=== PATIENT | female | born 1995 | race American Indian/Alaskan Native ===

== ENCOUNTER 2022-03-08 20:20 | Inpatient (IN) | payer OTHER, SELFPAY ==
--- NOTE | ~2022-03-08 | CT_ITS ---
EXAMINATION: CT HEAD WITHOUT CONTRAST CLINICAL INFORMATION: Altered mental status. COMPARISON: No relevant prior imaging. TECHNIQUE: Contiguous axial imaging was performed from the skull base to vertex without intravenous administration of contrast. This CT examination was performed using dose optimization techniques as appropriate, variously including the following: *Automated exposure control *Adjustment of mA and/or kV according to patient size (this includes techniques or standardized protocols for targeted exams where dose is matched to indication/reason for exam; i.e. extremities or head) *Use of iterative reconstruction technique DLP: 561 mGy-cm FINDINGS: There is no acute intracranial hemorrhage or abnormal extra-axial collection. No intracranial mass effect or midline shift. Lateral and third ventricles are normal. No hydrocephalus. [place]-white matter differentiation is preserved and there is no evidence of acute territorial infarct. The calvarium and skull base are intact. No mastoid or middle ear effusion. No active paranasal sinus disease. A large nasal septal perforation is partially included within the [id number] of this examination. CT/CT head/brain wo con IMPRESSION: There is a large nasal septal perforation is partially included within the [id number] of this examination. Otherwise unremarkable CT scan of the head. Specifically no evidence of acute territorial infarct or hemorrhage.
[2022-03-08 20:36] VITALS: BP 158/90; PULSE 110; RESP 18; TEMP 36.4; O2SAT 97; BMI 24.0
--- NOTE | 2022-03-08 20:45 | PC.NURSE ---
Attempted blood work-unsuccessful.
--- NOTE | 2022-03-08 21:05 | ED.PSYCH ---
HPI - Psych General Chief Complaint: Psychiatric Symptoms Stated Complaint: crisis Time Seen by Provider: 03/08/22 21:04 Source: patient Mode of arrival: ambulatory Limitations: other (poor historian - patient keeps looking around stating I don't know. ) History of Present Illness MD complaint: feels depressed, anxiety, substance abuse and other (not eating, sleeping, left home naked) Onset (ago): day(s) (?last few days) Duration: getting worse History of same: No Relieving factors: none Exacerbating factors: drug use Context: recent drug abuse and significant life stressor (mother recently passed) Associated psychiatric symptoms: racing thoughts Associated symptoms: other (not eating or sleeping) Related Data Allergies Allergy/AdvReac Type Severity Reaction Status Date / Time No Known Allergies Allergy Verified 06/27/20 16:17 Review of Systems Review of Systems: Constitutional : No Fever, No Chills ENT/Mouth : No Ear Pain, No Nasal Congestion, No sore throat Eyes: No Eye Pain, No Swelling, No Redness Cardiovascular : No Chest Pain, No SOB Respiratory : No Cough, No Sputum, No Dyspnea Gastrointestinal : No Nausea, No Vomiting, No Diarrhea, No Hematochezia, No Melena Genitourinary : No Dysuria, No Urinary Frequency, No Hematuria Musculoskeletal : No Myalgias Skin : No Skin Lesions, No rash Neuro : No Weakness, No Numbness, No Paresthesias, No Dizziness, No Headache Psych : positive Anxiety, no Depression, no SI/HI Heme/Lymph: No Lymphadenopathy Endocrine : No Polyuria, No Polydipsia All other systems reviewed and are negative [facility] Past Medical History Source: old records reviewed Medical History Chronic cough Smoker Family History Family History (Updated 06/27/20 @ 16:18 by GIOVANNI Magana) Father No problems noted. Mother Family history of thyroid problem Social History Social History (Updated 03/08/22 @ 21:29 by Padmini Borrero DO) Patient Tobacco Use Status: Current everyday Tobacco user Substance Use Type: Crack/Cocaine and Heroin Physical Exam Vital Signs: Vital Signs: Last Vital Signs Temp 97.6 F 03/08/22 20:36 Pulse 110 H 03/08/22 20:36 Resp 18 03/08/22 20:36 BP 158/90 H 03/08/22 20:36 Pulse Ox 97 03/08/22 20:36 O2 Del Method 03/08/22 20:36 BMI result Body Mass Index 24.0 Appearance: Alert. Oriented X 1. No acute distress. Anxious, looking around room appears paranoid and responding to internal stimuli Eyes: Pupils equal, round and reactive to light. 4mm ENT: Pharynx normal. Neck: Normal inspection. Neck supple. CVS: Normal heart rate and rhythm. Pulses normal. Respiratory: No respiratory distress. Breath sounds normal. Abdomen: Soft and non-tender. Skin: Skin warm and dry. Normal skin color. Normal skin turgor. Extremities: No lower extremity edema. Neuro: Oriented X 1. No motor deficit. No sensory deficit. CN 2-12 intact Course Course Course Narrative: Physician observation started at 1047pm. Patient placed in physician observation because the patient needed more time for [facility] to assess the need for psych admission. At the time observation was started the patient's vitals were stable, patient is alert and oriented but slightly anxious, Neuro: nonfocal, CV RRR, Lungs clear patient threatening to leave still under the influence and paranoid - S12 signed PO meds given patient now agitated, hitting the doors swinging at staff, IM zyprexa and restraints ordered for her and staff safety MDM - Psych MDM Narrative Medical decision making narrative: 27 yo female with hx of substance abuse here with c/o not eating, sleeping, substance abuse ? heroin and she appears paranoid and responding to internal stimuli at this time will obtain labs, drugs of abuse, PO ativan at her request. Will refer to [facility] Lab Data Result diagrams: 03/08/22 21:49 03/08/22 21:49 Labs: Lab Results 03/08/22 03/08/22 03/08/22 Range/Units 20:44 21:49 21:49 WBC 9.8 (4.8-10.8) X10*3/uL RBC 4.80 (4.20-5.50) X10*6/uL Hgb 13.8 (12.0-16.0) g/dl Hct 41.2 (37.0-47.0) % MCV 85.8 (80.0-98.0) fL MCH 28.8 (27.0-33.0) pg MCHC 33.5 (31.0-35.0) g/dl RDW 13.2 (11.0-16.0) % Plt Count 266 (160-400) X10*3/uL MPV 10.3 (9.4-12.3) fL Immature Gran % (Auto) 0.3 (0.0-0.4) % Neut % (Auto) 60.7 (45-73) % Lymph % (Auto) 31.0 (20-40) % [place] % (Auto) 7.3 (2-11) % Eos % (Auto) 0.3 (0-4) % Baso % (Auto) 0.4 (0-2) % Lymph # (Auto) 3.1 (1.2-4.9) X10*3/uL [place] # (Auto) 0.7 (0.1-1.2) X10*3/uL Eos # (Auto) 0.0 (0.0-0.4) X10*3/uL Baso # (Auto) 0.0 (0.0-0.2) X10*3/uL Abs Immat Gran (auto) 0.03 (0.00-0.03) X10*3/uL Absolute Neuts (auto) 6.0 (2.0-8.3) x10*3/uL Absolute Nucleated RBC 0.000 (0.0-0.012) X10*3/uL Nucleated RBC % (auto) 0.0 (0.0-0.2) /100WBC Sodium 139 (135-145) mmol/L Potassium 3.8 (3.3-5.1) mmol/L Chloride 104 (96-108) mmol/L Carbon Dioxide 22 (22-29) mmol/L Anion Gap 17 (12-20) BUN 15 (9-16) mg/dL Creatinine 0.98 (0.5-1.4) mg/dL Estim Creat Clear Calc 74.5 Estimated GFR > 60 Random Glucose 122 H (60-115) mg/dL Calcium 9.1 (8.4-10.2) mg/dL Total Bilirubin 0.6 (0.0-1.0) mg/dL AST 13 (5-31) U/L ALT 10 (0-31) U/L Alkaline Phosphatase 66 (39-117) U/L Total Protein 8.2 H (6.5-8.0) g/dL Albumin 5.1 H (3.5-5.0) g/dL Ethyl Alcohol < 10 mg/dL COVID-19 (DANILO) Negative (Negative) COVID-19 Clin Com See Note Discharge Plan Discharge Clinical Impression: Acute anxiety Patient Disposition: Still a Patient
[2022-03-08 21:23] LABS: COVID-19 Test Negative (Negative)
[2022-03-08] MEDS: LORazepam 1 MG TABLET 2 MG PO ×2 (21:31→22:52)
[2022-03-08 22:04] LABS: MANUAL DIFF FLAG NO
[2022-03-08 22:08] LABS: Basophils Percent Auto 0.4 % (0-2); Eosinophils Percent Auto 0.3 % (0-4); Hematocrit 41.2 % (37.0-47.0); Hemoglobin 13.8 g/dl (12.0-16.0); Imm Gran Abs Auto 0.03 X10*3/uL (0.00-0.03); Imm Gran Pct Auto 0.3 % (0.0-0.4); Lymphocytes Absolute Auto 3.1 X10*3/uL (1.2-4.9); Mean Corpuscular HGB Conc 33.5 g/dl (31.0-35.0); Mean Corpuscular Hemoglobin 28.8 pg (27.0-33.0); Mean Corpuscular Volume 85.8 fL (80.0-98.0); Mean Platelet Volume 10.3 fL (9.4-12.3); Monocytes Absolute Auto 0.7 X10*3/uL (0.1-1.2); Monocytes Percent Auto 7.3 % (2-11); Neutrophils Percent Auto 60.7 % (45-73); Platelet Count 266 X10*3/uL (160-400); Red Cell Distribution Width 13.2 % (11.0-16.0); White Blood Count 9.8 X10*3/uL (4.8-10.8)
[2022-03-08 22:22] LABS: Alanine Aminotransferase 10 U/L (0-31); Albumin Level 5.1 g/dL (3.5-5.0); Alkaline Phosphatase 66 U/L (39-117); Anion Gap 17 (12-20); Aspartate Amino Transferase 13 U/L (5-31); Bilirubin Total 0.6 mg/dL (0.0-1.0); Blood Urea Nitrogen 15 mg/dL (9-16); Calcium 9.1 mg/dL (8.4-10.2); Carbon Dioxide 22 mmol/L (22-29); Chloride 104 mmol/L (96-108); Creatinine Clr Calc Pharmacy 74.5; Estimated Glomerular Filt Rate > 60; Ethanol < 10 mg/dL; Glucose Random 122 mg/dL (60-115); Potassium 3.8 mmol/L (3.3-5.1); Sodium 139 mmol/L (135-145); Total Protein 8.2 g/dL (6.5-8.0)
[2022-03-08] MEDS: Nicotine Polacrilex 2 MG GUM BUCCAL (22:50)
[2022-03-08] MEDS: OLANZapine 5 MG TABLET PO (22:52)
[2022-03-08 23:10] VITALS: RESP 22
[2022-03-08] MEDS: OLANZapine 10 MG VIAL 2.5 MG IM (23:14)
[2022-03-08 23:25] VITALS: RESP 20
[2022-03-08 23:40] VITALS: RESP 18
--- NOTE | 2022-03-08 23:41 | PC.NURSE ---
Per boy friend's report patient has been doing cocaine and heroin for last four days to cope with of her mother. Patient disoriented, agitated, demanding discharge, patient is alert and oriented x 0, became more aggressive started pushing the exit door multiple, PO Ativan 2 mg po and Olanzapine 5 mg po administered as ordered, no effect, at 2300 patient became extremely agitated, loud and disruptive, combative with staff member, unable to redirect, security called for support, provider notified/ordered physical restraint and chemical restraint, Olanzapine 2.5 mg administered and physical restraint initiated at 2310, physical restrained discontinued at 2345, patient is on 1:1 for safety check, VSS, will continue to monitor.
[2022-03-08 23:55] VITALS: RESP 18
[2022-03-09 00:10] VITALS: RESP 16
--- NOTE | 2022-03-09 05:35 | PC.NURSE ---
Patient is s/p restraint, slept through the night, no distress observed/reported, pending urine sample, N referral completed/confirmed/pending ETA, patient is currently not on any medication, patient still struggling to recollect her memory secondary to poly-substance influence, behavior unpredictable, will continue to monitor.
[2022-03-09 06:16] VITALS: RESP 18
--- NOTE | 2022-03-09 08:01 | PC.NURSE ---
Pt sleeping at this time, resp reg and even, NAD. Awaiting bhn eval at this time.
[2022-03-09 10:23] VITALS: BP 136/96; PULSE 84; RESP 16; TEMP 35.7; O2SAT 98
--- NOTE | 2022-03-09 10:23 | PC.NURSE ---
BHN in to bedside for assessment.
--- NOTE | 2022-03-09 14:50 | PC.NURSE ---
Attempt made to engage pt in individual OT tx this date however pt does not respond or acknowledge this database report writer upon approach.
[2022-03-09 15:38] VITALS: BP 126/85; PULSE 73; RESP 18; TEMP 36.2; O2SAT 97
[2022-03-09 17:07] LABS: Amphetamine Screen Urine Not Detected (Not Detect); Barbiturates, Urine Not Detected (Not Detect); Benzodiazepines Screen Urine Not Detected (Not Detect); Cannabinoid Screen Urine POSITIVE (Not Detect); Cocaine Screen Urine POSITIVE (Not Detect); Fentanyl, urine POSITIVE (Not Detect); Opiate Screen Urine POSITIVE (Not Detect); Phencyclidine Screen Urine Not Detected (Not Detect)
--- NOTE | 2022-03-10 | ECG_ITS ---
Test Reason : med clearance Blood Pressure : / mmHG Vent. Rate : 091 BPM Atrial Rate : 091 BPM P-R Int : 120 ms QRS Dur : 082 ms QT Int : 460 ms P-R-T Axes : 055 047 034 degrees QTc Int : 567 ms Normal sinus rhythm Prolonged QT Abnormal ECG No previous ECGs available Referred By: Maggie Savage Electronically Signed By:Danny Tellez
--- NOTE | 2022-03-10 | ECG_ITS ---
Test Reason : qtc prolongation Blood Pressure : / mmHG Vent. Rate : 080 BPM Atrial Rate : 080 BPM P-R Int : 118 ms QRS Dur : 072 ms QT Int : 450 ms P-R-T Axes : 061 081 046 degrees QTc Int : 519 ms Normal sinus rhythm Prolonged QT Abnormal ECG When compared to the previous EKG of QTc slightly improved Referred By: Maggie Savage Electronically Signed By:Danny Tellez
[2022-03-10 03:32] VITALS: BP 144/99; PULSE 92; RESP 18; TEMP 36.2; O2SAT 100
--- NOTE | 2022-03-10 06:30 | PC.NURSE ---
Patient slept through the night, no distress observed/reported, patient per reported is now alert and oriented x 3, patient was assessed by BHN, disposition pending/[facility] follow up in the morning, behavior appropriate, patient is not on any medication, will continue to monitor.
--- NOTE | 2022-03-10 07:13 | PC.NURSE ---
patient appears to remain asleep at present respirations are even and unlabored patient appears in no distress
[2022-03-10 07:45] VITALS: BP 135/73; PULSE 66; RESP 13; TEMP 36.5; O2SAT 95
[2022-03-10] MEDS: risperiDONE 1 MG TABLET PO (11:59)
[2022-03-10] MEDS: LORazepam 1 MG TABLET 2 MG PO (11:59)
[2022-03-10] MEDS: Acetaminophen 325 MG TABLET 650 MG PO (13:35)
[2022-03-10 14:34] LABS: UPreg QC Valid YES; Urine Pregnancy NEGATIVE (NEGATIVE)
[2022-03-10 15:33] LABS: COVID-19 Test Negative (Negative)
[2022-03-10 15:37] LABS: Magnesium 1.9 mg/dL (1.6-2.6)
[2022-03-10 21:29] LABS: Alanine Aminotransferase 10 U/L (0-31); Albumin Level 4.8 g/dL (3.5-5.0); Alkaline Phosphatase 60 U/L (39-117); Anion Gap 15 (12-20); Aspartate Amino Transferase 13 U/L (5-31); Bilirubin Total 0.9 mg/dL (0.0-1.0); Blood Urea Nitrogen 14 mg/dL (9-16); Calcium 9.5 mg/dL (8.4-10.2); Carbon Dioxide 23 mmol/L (22-29); Chloride 107 mmol/L (96-108); Creatinine Clr Calc Pharmacy 92.3; Estimated Glomerular Filt Rate > 60; Glucose Random 91 mg/dL (60-115); Sodium 141 mmol/L (135-145); Total Protein 7.5 g/dL (6.5-8.0)
[2022-03-10 21:39] LABS: Magnesium 2.2 mg/dL (1.6-2.6)
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
[2022-03-10 22:54] LABS: Troponin-I High Sensitivity < 3.5 ng/L (<3.5-17.0)
--- NOTE | 2022-03-11 07:00 | ECG_ITS ---
Test Reason : QTC PROLONGATION Blood Pressure : / mmHG Vent. Rate : 061 BPM Atrial Rate : 061 BPM P-R Int : 106 ms QRS Dur : 086 ms QT Int : 582 ms P-R-T Axes : 017 053 020 degrees QTc Int : 585 ms Sinus rhythm with short MO Prominent U waves in V2 and V3. Prolonged QT Abnormal ECG When compared with ECG of 10-MAR-2022 21:35, QT has lengthened Referred By: Maggie Savage Electronically Signed By:Danny Tellez
[2022-03-11 09:18] LABS: Estimated Average Glucose 111 mg/dL; Hemoglobin A1c % 5.5 %
[2022-03-11 09:40] LABS: Alanine Aminotransferase 8 U/L (0-31); Albumin Level 4.9 g/dL (3.5-5.0); Alkaline Phosphatase 60 U/L (39-117); Anion Gap 15 (12-20); Aspartate Amino Transferase 12 U/L (5-31); Bilirubin Total 1.3 mg/dL (0.0-1.0); Blood Urea Nitrogen 12 mg/dL (9-16); Calcium 9.6 mg/dL (8.4-10.2); Carbon Dioxide 22 mmol/L (22-29); Chloride 106 mmol/L (96-108); Cholesterol 140 mg/dL; Creatinine Clr Calc Pharmacy 94.7; Estimated Glomerular Filt Rate > 60; Glucose Fasting 112 mg/dL (60-99); HDL Cholesterol 37 mg/dL; LDL Cholesterol Calculated 88 mg/dl; Potassium 4.1 mmol/L (3.3-5.1); Sodium 139 mmol/L (135-145); Total Protein 7.7 g/dL (6.5-8.0); Triglycerides 75 mg/dL
[2022-03-11 10:00] VITALS: BP 120/73; PULSE 78; RESP 16; TEMP 37; O2SAT 98
[2022-03-11 10:02] LABS: Thyroid Stimulating Hormone 0.27 uIU/mL (0.32-4.0)
--- NOTE | 2022-03-11 12:57 | HO.PSYADMNOT ---
HPI Date of Service: 03/12/22 Chief Complaint: Prolonged QTc Sources of Information: patient interviewed, chart reviewed and crisis/core team assessment reviewed HPI Subjective Notes: Conditional Voluntary Narrative: Ms. Hedrick is a 27 year-old woman with hx of substance use including cocaine, opioids. She was [place] [facility] [place] her fiance of 6 years due to pt presenting as not talking, acting in bizarre way, not sleeping nor eting much, paranoid. Utox positive for cocaine, fentanyl, opioids and cannabinoids. In the ED- CBC with dif wnl, CMP wnl, EKG on 03/10 showed normal sinus but prolonged Qtc 567ms, K>4, Mg>2. Repeat EKG on 03/10 showed improved Qtc 519ms, troponin less than 3.5. Head CT on 03/10- no acute pathology, but showed large nasal septal perforation. On the unit, pt reports she does not know where she is is. She was seen entering other pts room. She appeared paranoia, denying that her name was [place] and suspicious of staff. Seeking reassurance from some staff as to her safety. She couldn't tell the month, year, situation. She denies SI/HI. She did report hearing voices but would not elaborate; she does appear internally preoccupied. Most collateral information gathered from Estrada (pt's fiance [phone]). Brian reports pt has been using combination of crack cocaine, heroin/fentanyl for the past 6-8 years. Brian reports 3 weeks ago her mother . It has been very stressful for for both of them. Pt then presented as not talking, minimally eating, ont sleeping, paranoid and guarded. No prior hx of psychosis. No prior hx of psychotropic medications. Per Estrada, pt was not taking any medications. Also no prior psychiatric hx. Past Psychiatric History: Inpt: none OP: none Suicide attempts: none per Estrada Past trials: none Medical Evaluation Reviewed: Yes [facility] Medical History Chronic cough Smoker Diagnostics Vital Signs (24Hr): BMI result Body Mass Index 24.0 Labs Results: 03/08/22 21:49 03/11/22 08:58 Labs: Laboratory Results - last 48 hr 03/08/22 03/09/22 03/09/22 21:49 16:43 Unknown Sodium Potassium Chloride Carbon Dioxide Anion Gap BUN Creatinine Estim Creat Clear Calc Estimated GFR Random Glucose Fasting Glucose Estimat Average Glucose Hemoglobin A1c % Calcium Magnesium 1.9 Total Bilirubin AST ALT Alkaline Phosphatase Troponin I High Sens Total Protein Albumin Triglycerides Cholesterol LDL Cholesterol, Calc HDL Cholesterol TSH Urine Test NEGATIVE Urine Opiates Screen POSITIVE H Urine Fentanyl Screen POSITIVE H Ur Barbiturates Screen Not Detected Ur Phencyclidine Scrn Not Detected Ur Amphetamines Screen Not Detected U Benzodiazepines Scrn Not Detected Urine Cocaine Screen POSITIVE H U Marijuana (THC) Screen POSITIVE H COVID-19 (DANILO) COVID-19 [employer] Com 03/10/22 03/10/22 03/10/22 15:08 20:51 22:29 Sodium 141 Potassium 4.0 Chloride 107 Carbon Dioxide 23 Anion Gap 15 BUN 14 Creatinine 0.79 Estim Creat Clear Calc 92.3 Estimated GFR > 60 Random Glucose 91 Fasting Glucose Estimat Average Glucose Hemoglobin A1c % Calcium 9.5 Magnesium 2.2 Total Bilirubin 0.9 AST 13 ALT 10 Alkaline Phosphatase 60 Troponin I High Sens < 3.5 Total Protein 7.5 Albumin 4.8 Triglycerides Cholesterol LDL Cholesterol, Calc HDL Cholesterol TSH Urine Test Urine Opiates Screen Urine Fentanyl Screen Ur Barbiturates Screen Ur Phencyclidine Scrn Ur Amphetamines Screen U Benzodiazepines Scrn Urine Cocaine Screen U Marijuana (THC) Screen COVID-19 (DANLIO) Negative COVID-19 [employer] Com See Note 03/11/22 03/11/22 08:58 08:58 Sodium 139 Potassium 4.1 Chloride 106 Carbon Dioxide 22 Anion Gap 15 BUN 12 Creatinine 0.77 Estim Creat Clear Calc 94.7 Estimated GFR > 60 Random Glucose Fasting Glucose 112 H Estimat Average Glucose 111 Hemoglobin A1c % 5.5 Calcium 9.6 Magnesium Total Bilirubin 1.3 H AST 12 ALT 8 Alkaline Phosphatase 60 Troponin I High Sens Total Protein 7.7 Albumin 4.9 Triglycerides 75 Cholesterol 140 LDL Cholesterol, Calc 88 HDL Cholesterol 37 TSH 0.27 L Urine Test Urine Opiates Screen Urine Fentanyl Screen Ur Barbiturates Screen Ur Phencyclidine Scrn Ur Amphetamines Screen U Benzodiazepines Scrn Urine Cocaine Screen U Marijuana (THC) Screen COVID-19 (DANILO) COVID-19 Clin Com Imaging Radiology Impressions: ITS Impressions Head CT 03/10/22 22:47 IMPRESSION: There is a large nasal septal perforation is partially included within the [id number] of this examination. Otherwise unremarkable CT scan of the head. Specifically no evidence of acute territorial infarct or hemorrhage. Meds/Allergies Meds Home Medications Medication Instructions Recorded Confirmed Type No Known Home Meds 03/09/22 03/09/22 History Allergies Allergies Allergy/AdvReac Type Severity Reaction Status Date / Time No Known Allergies Allergy Verified 06/27/20 16:17 Mental Status Exam Mental Status Exam Narrative: Appearance: thin, wearing, poor hygiene in NAD Behavior:hypervigilant, suspicious psychomotor:no agitation or retardation noted Speech:mumbles at times, minimally spontaneous Thought process:disorganized Thought content:suspicious, confused Mood:unable to assess Affect: suspicious, guarded SI:denies HI:denies VH/AH:appears internally preoccupied Delusions:paranoid delusions Insight/judgment:impaired x 2. Memory/cog: alert, not oriented to place, situation, month or date. Assessment & Plan Assessment & Plan (1) Psychosis: Status: Acute Qualifiers: Psychosis type: unspecified psychosis type Qualified Code(s): F29 - Unspecified psychosis not due to a substance or known physiological condition Code(s): F29 - Unspecified psychosis not due to a substance or known physiological condition Plan Ms. Hedrick is a 27 year-old woman with hx of polysubstance use disorder. Utox positive for cocaine, opioids, fentanyl and canabinoids. Pt presents as confused, not oriented to place, situation, month, date. EKG shows Qtc prolongation- initial 563ms, subsequent 519ms, scheduled EKG this morning. Given Qtc holding antipsychotics. PLAN 1. Admit to M3, cv, 5 mins checks. 2. Hold antipsychotic due to significantly prolonged Qtc- consult to cardiology order. 3. Obtain collateral information 4. Aftercare planning. Patient educated on: diagnosis Reason for continued inpatient stay Substantial Risk for: inability to function
--- NOTE | 2022-03-11 14:13 | P.CONCA_ITS ---
History of Present Illness History of Present Illness Date of Service: 03/11/22 Requesting physician: Maggie Savage Chief complaint: Prolonged QTc Narrative: 27-year-old female who recently lost her mother is presenting with paranoid he a in the setting of polysubstance abuse including cocaine. We have been asked to comment about her prolonged QT interval on the EKG. Patient was interviewed at bedside. She is vague about her history and apparently forgetful. She is denying any breathing issues. She has background of asthma. She has some pressure-like feeling in the chest but is quite vague about it. She is saying that she probably passed down when she was very young. Overall history is quite vague. Her EKGs were reviewed and she clearly has prolonged QT interval with long ST segments. Her electrolytes were within normal limits. [facility] Past Medical History Medical History Chronic cough Smoker Family History Family History (Updated 06/27/20 @ 16:18 by GIOVANNI Magana) Father No problems noted. Mother Family history of thyroid problem Social History Social History (Updated 03/08/22 @ 21:29 by Padmini Borrero DO) Household Members: Significant Other Household Members Other:: child of Sig other Housing: Unknown / Unable to assess Unable to assess alcohol history related to: Unknown Patient Tobacco Use Status: Tobacco use Unknown Use of substances other than those prescribed or required for medical reasons: Yes Substance Use Type: Crack/Cocaine, Marijuana, Opiates and Other Substance Use Type Other:: fentanyl Last Used Substance Other:: Unknown but tested positive ffor the above substances Other Past Substance Use Problem:: hx of cocaine and heroin abuse Advance Directives: No Advance Directives Information Provided: Yes Do you have thoughts of harming others: None Do you have a plan to hurt others: No Plan Recently lost weight without trying: Unsure Eating poorly because of decreased appetite: Yes Nutrition Risks: Anorexia Patient : No : No Poor oral hygiene: No service: No Sexual orientation: Don't Know Meds Allergies Allergy/AdvReac Type Severity Reaction Status Date / Time No Known Allergies Allergy Verified 06/27/20 16:17 Active Medications: Current Medications Acetaminophen (Acetaminophen 325 Mg Tablet) 650 mg PO Q6H PRN PRN Reason: Headache/Pain Mild Scale (1-3) Al Hydroxide/Mg Hydroxide (Magnesium Hydrox/Alum Hydrox 30 Ml Oral.Susp) 30 ml PO Q6H PRN PRN Reason: Heartburn/Nausea Hydroxyzine HCl (Hydroxyzine Hcl 25 Mg Tablet) 25 mg PO Q6H PRN PRN Reason: Anxiety Lorazepam (Lorazepam 1 Mg Tablet) 1 mg PO Q6H PRN PRN Reason: agitation Magnesium Hydroxide (Milk Of Magnesia 30 Ml Oral.Susp) 30 ml PO DAILY PRN PRN Reason: Constipation Nicotine Polacrilex (Nicotine Polacrilex 2 Mg Gum) 2 mg BUCCAL Q1H PRN PRN Reason: Nicotine Cravings Last Admin: 03/08/22 22:50 Dose: 2 mg Risperidone (Risperidone 1 Mg Tablet) 1 mg PO BID NATALIE Last Admin: 03/10/22 11:59 Dose: 1 mg Home Medications Medication Instructions Recorded Confirmed Last Taken Type No Known Home Meds 03/09/22 03/09/22 Unknown History Physical Exam Vital Signs: Vital Signs: Last Vital Signs Temp 97.7 F 03/10/22 07:45 Pulse 66 03/10/22 07:45 Resp 13 03/10/22 07:45 BP 135/73 03/10/22 07:45 Pulse Ox 95 03/10/22 07:45 O2 Del Method 03/10/22 07:45 BMI result Body Mass Index 24.0 GENERAL APPEARANCE: in no acute distress. HEART: no murmurs, regular rate and rhythm. LUNGS: clear to auscultation bilaterally. ABDOMEN: soft, nontender. EXTREMITIES: no edema. PERIPHERAL PULSES: equal. NEUROLOGIC: No gross deficits, AAO X 3 Objective Labs and Meds Result diagrams: 03/08/22 21:49 03/11/22 08:58 Lab results: Laboratory Results - last 24 hr 03/08/22 03/09/22 03/10/22 21:49 Unknown 15:08 Sodium Potassium Chloride Carbon Dioxide Anion Gap BUN Creatinine Estim Creat Clear Calc Estimated GFR Random Glucose Fasting Glucose Estimat Average Glucose Hemoglobin A1c % Calcium Magnesium 1.9 Total Bilirubin AST ALT Alkaline Phosphatase Troponin I High Sens Total Protein Albumin Triglycerides Cholesterol LDL Cholesterol, Calc HDL Cholesterol TSH Urine Test NEGATIVE COVID-19 (DANILO) Negative COVID-19 Clin Com See Note 03/10/22 03/10/22 03/11/22 20:51 22:29 08:58 Sodium 141 139 Potassium 4.0 4.1 Chloride 107 106 Carbon Dioxide 23 22 Anion Gap 15 15 BUN 14 12 Creatinine 0.79 0.77 Estim Creat Clear Calc 92.3 94.7 Estimated GFR > 60 > 60 Random Glucose 91 Fasting Glucose 112 H Estimat Average Glucose Hemoglobin A1c % Calcium 9.5 9.6 Magnesium 2.2 Total Bilirubin 0.9 1.3 H AST 13 12 ALT 10 8 Alkaline Phosphatase 60 60 Troponin I High Sens < 3.5 Total Protein 7.5 7.7 Albumin 4.8 4.9 Triglycerides 75 Cholesterol 140 LDL Cholesterol, Calc 88 HDL Cholesterol 37 TSH 0.27 L Urine Test COVID-19 (DANILO) COVID-19 Clin Com 03/11/22 08:58 Sodium Potassium Chloride Carbon Dioxide Anion Gap BUN Creatinine Estim Creat Clear Calc Estimated GFR Random Glucose Fasting Glucose Estimat Average Glucose 111 Hemoglobin A1c % 5.5 Calcium Magnesium Total Bilirubin AST ALT Alkaline Phosphatase Troponin I High Sens Total Protein Albumin Triglycerides Cholesterol LDL Cholesterol, Calc HDL Cholesterol TSH Urine Test COVID-19 (DANILO) COVID-19 Clin Com Imaging Radiologist's impression: Impressions Head CT 03/10/22 22:47 IMPRESSION: There is a large nasal septal perforation is partially included within the [id number] of this examination. Otherwise unremarkable CT scan of the head. Specifically no evidence of acute territorial infarct or hemorrhage. Assessment and Plan (1) Psychosis: Qualifiers: Psychosis type: unspecified psychosis type Qualified Code(s): F29 - Unspecified psychosis not due to a substance or known physiological condition Status: Acute (2) Prolonged QT interval: Status: Acute Plan 27-year-old female with paranoia in the setting of cocaine abuse. She has prolonged QT interval with QTC of 585. No reported recent syncope. Monitor on telemetry to make sure she does not develop any torsades. Give 1 g magnesium and 40 mg of potassium. Repeat EKG and 2-3 hours. I do not think we can safely use antipsychotics currently. Try benzodiazepines to calm her in case she is agitated. Her mother recently. Would be important to know what was the cause of because sometime long QT can be a genetic issue and there is no previous EKGs to compare with. Likely cause of QT prolongation is substance abuse. Thank you for allowing me to participate in the care of your patient. Please feel free to contact me if you have any questions. Procedures Date of Service Date of Service: 03/11/22
[2022-03-11 14:51] LABS: Free T4 (Free Thyroxine) 1.09 ng/dL (0.71-1.85)
[2022-03-11 16:22] VITALS: BP 122/78; PULSE 97; RESP 16; TEMP 37.1; O2SAT 97
--- NOTE | 2022-03-11 16:23 | PC.NURSE ---
attempted x2 to administer magnesium and potassium as prescribed by mouth without success. The first time she tried to take all pills at once despite my discouraging her from doing so and she promptly vomited prior to swallowing. On the second attempt she took one pill at a time in applesauce and threw up within one minute of ingestion. Maggie Savage NP informed, aware.
[2022-03-11 17:24] LABS: Glucose, Whole Blood 115 mg/dL (60-115)
--- NOTE | 2022-03-11 17:30 | ECG_ITS ---
Test Reason : qtc prolongation Blood Pressure : / mmHG Vent. Rate : 066 BPM Atrial Rate : 066 BPM P-R Int : 126 ms QRS Dur : 088 ms QT Int : 560 ms P-R-T Axes : 026 033 023 degrees QTc Int : 587 ms Normal sinus rhythm Prolonged QT Abnormal ECG When compared with ECG of 11-MAR-2022 10:55, No significant change was found Referred By: Maggie Savage Electronically Signed By:Danny Tellez
--- NOTE | 2022-03-11 17:33 | P.DS_ITS ---
DS: Providers Provider Date of Service: 03/11/22 Date of admission: 03/10/22 17:00 Primary care physician: None Physician Consults: 03/11/22 13:01 Consult to Cardiology Routine Consulting Provider: Danny Tellez Reason for consultation: qtc prolongation Has provider been notified: Yes DS: Diagnosis Discharge Diagnosis (1) Psychosis: Status: Acute (2) Prolonged QT interval: Status: Acute DS: Medications Discharge Medications Home Medications: Home Medications Medication Instructions Recorded Confirmed No Known Home Meds 03/09/22 03/09/22 Mental Status Exam Mental Status Exam Narrative: Appearance: thin, wearing, poor hygiene in NAD Behavior:hypervigilant, suspicious psychomotor:no agitation or retardation noted Speech:mumbles at times, minimally spontaneous Thought process:disorganized Thought content:suspicious, confused Mood:unable to assess Affect: suspicious, guarded SI:denies HI:denies VH/AH:appears internally preoccupied Delusions:paranoid delusions Insight/judgment:impaired x 2. Memory/cog: alert, not oriented to place, situation, month or date. Data Data Completed and Pending Completed studies during hospitalization [Text1]: 03/08/22 03/08/22 03/08/22 20:44 21:49 21:49 WBC 9.8 RBC 4.80 Hgb 13.8 Hct 41.2 MCV 85.8 MCH 28.8 MCHC 33.5 RDW 13.2 Plt Count 266 MPV 10.3 Immature Gran % (Auto) 0.3 Neut % (Auto) 60.7 Lymph % (Auto) 31.0 [place] % (Auto) 7.3 Eos % (Auto) 0.3 Baso % (Auto) 0.4 Lymph # (Auto) 3.1 [place] # (Auto) 0.7 Eos # (Auto) 0.0 Baso # (Auto) 0.0 Abs Immat Gran (auto) 0.03 Absolute Neuts (auto) 6.0 Absolute Nucleated RBC 0.000 Nucleated RBC % (auto) 0.0 Sodium 139 Potassium 3.8 Chloride 104 Carbon Dioxide 22 Anion Gap 17 BUN 15 Creatinine 0.98 Estim Creat Clear Calc 74.5 Estimated GFR > 60 POC Glucose Random Glucose 122 H Fasting Glucose Estimat Average Glucose Hemoglobin A1c % Calcium 9.1 Magnesium 1.9 Total Bilirubin 0.6 AST 13 ALT 10 Alkaline Phosphatase 66 Troponin I High Sens Total Protein 8.2 H Albumin 5.1 H Triglycerides Cholesterol LDL Cholesterol, Calc HDL Cholesterol TSH Free T4 Urine Test Urine Opiates Screen EDDP ([facility] Metab) Methadone (GC/MS) Urine Fentanyl Screen Ur Barbiturates Screen Ur Phencyclidine Scrn Ur Amphetamines Screen U Benzodiazepines Scrn Urine Cocaine Screen U Marijuana (THC) Screen Ethyl Alcohol < 10 COVID-19 (DANILO) Negative COVID-19 Clin Com See Note 03/09/22 03/09/22 03/10/22 16:43 Unknown 15:08 WBC RBC Hgb Hct MCV MCH MCHC RDW Plt Count MPV Immature Gran % (Auto) Neut % (Auto) Lymph % (Auto) [place] % (Auto) Eos % (Auto) Baso % (Auto) Lymph # (Auto) [place] # (Auto) Eos # (Auto) Baso # (Auto) Abs Immat Gran (auto) Absolute Neuts (auto) Absolute Nucleated RBC Nucleated RBC % (auto) Sodium Potassium Chloride Carbon Dioxide Anion Gap BUN Creatinine Estim Creat Clear Calc Estimated GFR POC Glucose Random Glucose Fasting Glucose Estimat Average Glucose Hemoglobin A1c % Calcium Magnesium Total Bilirubin AST ALT Alkaline Phosphatase Troponin I High Sens Total Protein Albumin Triglycerides Cholesterol LDL Cholesterol, Calc HDL Cholesterol TSH Free T4 Urine Test NEGATIVE Urine Opiates Screen POSITIVE H EDDP ([facility] Metab) Methadone (GC/MS) Urine Fentanyl Screen POSITIVE H Ur Barbiturates Screen Not Detected Ur Phencyclidine Scrn Not Detected Ur Amphetamines Screen Not Detected U Benzodiazepines Scrn Not Detected Urine Cocaine Screen POSITIVE H U Marijuana (THC) Screen POSITIVE H Ethyl Alcohol COVID-19 (DANILO) Negative COVID-19 Clin Com See Note 03/10/22 03/10/22 03/11/22 20:51 22:29 08:58 WBC RBC Hgb Hct MCV MCH MCHC RDW Plt Count MPV Immature Gran % (Auto) Neut % (Auto) Lymph % (Auto) [place] % (Auto) Eos % (Auto) Baso % (Auto) Lymph # (Auto) [place] # (Auto) Eos # (Auto) Baso # (Auto) Abs Immat Gran (auto) Absolute Neuts (auto) Absolute Nucleated RBC Nucleated RBC % (auto) Sodium 141 139 Potassium 4.0 4.1 Chloride 107 106 Carbon Dioxide 23 22 Anion Gap 15 15 BUN 14 12 Creatinine 0.79 0.77 Estim Creat Clear Calc 92.3 94.7 Estimated GFR > 60 > 60 POC Glucose Random Glucose 91 Fasting Glucose 112 H Estimat Average Glucose Hemoglobin A1c % Calcium 9.5 9.6 Magnesium 2.2 Total Bilirubin 0.9 1.3 H AST 13 12 ALT 10 8 Alkaline Phosphatase 60 60 Troponin I High Sens < 3.5 Total Protein 7.5 7.7 Albumin 4.8 4.9 Triglycerides 75 Cholesterol 140 LDL Cholesterol, Calc 88 HDL Cholesterol 37 TSH 0.27 L Free T4 Urine Test Urine Opiates Screen EDDP ([facility] Metab) Methadone (GC/MS) Urine Fentanyl Screen Ur Barbiturates Screen Ur Phencyclidine Scrn Ur Amphetamines Screen U Benzodiazepines Scrn Urine Cocaine Screen U Marijuana (THC) Screen Ethyl Alcohol COVID-19 (DANILO) COVID-[employer] 03/11/22 03/11/22 03/11/22 08:58 13:58 14:21 WBC RBC Hgb Hct MCV MCH MCHC RDW Plt Count MPV Immature Gran % (Auto) Neut % (Auto) Lymph % (Auto) [place] % (Auto) Eos % (Auto) Baso % (Auto) Lymph # (Auto) [place] # (Auto) Eos # (Auto) Baso # (Auto) Abs Immat Gran (auto) Absolute Neuts (auto) Absolute Nucleated RBC Nucleated RBC % (auto) Sodium Potassium Chloride Carbon Dioxide Anion Gap BUN Creatinine Estim Creat Clear Calc Estimated GFR POC Glucose Random Glucose Fasting Glucose Estimat Average Glucose 111 Hemoglobin A1c % 5.5 Calcium Magnesium Total Bilirubin AST ALT Alkaline Phosphatase Troponin I High Sens Total Protein Albumin Triglycerides Cholesterol LDL Cholesterol, Calc HDL Cholesterol TSH Free T4 1.09 Urine Test Urine Opiates Screen EDDP ([facility] Metab) Pending Methadone (GC/MS) Pending Urine Fentanyl Screen Ur Barbiturates Screen Ur Phencyclidine Scrn Ur Amphetamines Screen U Benzodiazepines Scrn Urine Cocaine Screen U Marijuana (THC) Screen Ethyl Alcohol COVID-19 (DANILO) COVID-[employer] 03/11/22 17:19 WBC RBC Hgb Hct MCV MCH MCHC RDW Plt Count MPV Immature Gran % (Auto) Neut % (Auto) Lymph % (Auto) [place] % (Auto) Eos % (Auto) Baso % (Auto) Lymph # (Auto) [place] # (Auto) Eos # (Auto) Baso # (Auto) Abs Immat Gran (auto) Absolute Neuts (auto) Absolute Nucleated RBC Nucleated RBC % (auto) Sodium Potassium Chloride Carbon Dioxide Anion Gap BUN Creatinine Estim Creat Clear Calc Estimated GFR POC Glucose 115 Random Glucose Fasting Glucose Estimat Average Glucose Hemoglobin A1c % Calcium Magnesium Total Bilirubin AST ALT Alkaline Phosphatase Troponin I High Sens Total Protein Albumin Triglycerides Cholesterol LDL Cholesterol, Calc HDL Cholesterol TSH Free T4 Urine Test Urine Opiates Screen EDDP (Methodone Metab) Methadone (GC/MS) Urine Fentanyl Screen Ur Barbiturates Screen Ur Phencyclidine Scrn Ur Amphetamines Screen U Benzodiazepines Scrn Urine Cocaine Screen U Marijuana (THC) Screen Ethyl Alcohol COVID-19 (DANILO) COVID-19 Clin Com Imaging Diagnostic Imaging Impressions Head CT 03/10/22 22:47 IMPRESSION: There is a large nasal septal perforation is partially included within the [id number] of this examination. Otherwise unremarkable CT scan of the head. Specifically no evidence of acute territorial infarct or hemorrhage. DS: Summary Hospital Course Hospital Course: Subjective Notes: Conditional Voluntary Narrative: Ms. Hedrick is a 27 year-old woman with hx of substance use including cocaine, opioids. She was brought to [facility] ED by her fiance of 6 years due to pt presenting as not talking, acting in bizarre way, not sleeping nor eting much, paranoid. Utox positive for cocaine, fentanyl, opioids and cannabinoids. In the ED- CBC with dif wnl, CMP wnl, EKG on 03/10 showed normal sinus but prolonged Qtc 567ms, K>4, Mg>2. Repeat EKG on 03/10 showed improved Qtc 519ms, troponin less than 3.5. Head CT on 03/10- no acute pathology, but showed large nasal septal perforation. On the unit, pt reports she does not know where she is is. She was seen entering other pts room. She appeared paranoia, denying that her name was [place] and suspicious of staff. Seeking reassurance from some staff as to her safety. She couldn't tell the month, year, situation. She denies SI/HI. She did report hearing voices but would not elaborate; she does appear internally preoccupied. Most collateral information gathered from Estrada (pt's fiance [phone]). Brian reports pt has been using combination of crack cocaine, heroin/fentanyl for the past 6-8 years. Brian reports 3 weeks ago her mother . It has been very stressful for for both of them. Pt then presented as not talking, minimally eating, ont sleeping, paranoid and guarded. No prior hx of psychosis. No prior hx of psychotropic medications. Per Estrada, pt was not taking any medications. Also no prior psychiatric hx. Past Psychiatric History: Inpt: none OP: none Suicide attempts: none per Estrada Past trials: none Medical Evaluation Reviewed: Yes HOSPITAL COURSE Pt admitted on a CV, 5 minutes checks as pt entering other pt's room. Pt presented as paranoid, confused and disoriented not knowing why he is here, month, date. Pt presents as guarded. Repeat EKG this morning sinus rhythm with short [place], Qtc worsened at 585ms. Cardiology recommends telemetry monitoring. Pt will be transferred to [facility] [place]. Status at Discharge Functional status at discharge: independent ambulation Overall status at discharge: patient is not back to baseline Time Spent with Patient Time attestation: Total time spent providing and/or coordinating discharge services: Time spent: Greater than 30 minutes Discharge Plan Discharge Patient Disposition: [facility] Discharge Diagnosis: psychosis NOS opioid and cocaine use disorder Referrals: [facility] [Physician] - 1 Week Discharge Medications: No Action No Known Home Meds Discharge Orders: Discharge Order (Routine); Ordered 03/11/22 Ordered By: Maggie Savage Activity on Discharge: As tolerated Stand Alone Forms: Patient Portal Discharge page, Community Support Care Plan Goals: 1. maintain mood 2. no si/hi Health Concerns: transfer to medical floor due to qtc prolongation Plan of Treatment: medical management Assessment: pt not oriented to situation, place, month, year, paranoid Discharge Date/Time: 03/11/22 18:24
--- NOTE | 2022-03-11 18:19 | PC.NURSE ---
Prolonged QTC 583 reported to Maggie Savage CERTIFIED ADAPTIVE PHYSICAL EDUCATOR on receipt of ekg result. Cornice Upholsterer consulted - patient reported chest pressure to precipitate washer in my presence. Cornice Upholsterer told patient that could be caused by anxiety, ordered urine tox screen for methadone ( sent - pending) and po Mg+ and K+. Patient vomited Mg+ and K+ as ordered on 2 separate attempts. Maggie Savage RN informed. Order to transfer pt to C - Nurse to nurse given to Jyothi on IMC at 1820. Pt discharged ti C at this time.
[2022-03-22 21:36] LABS: EDDP (Methadone Metabolite) negative; Methadone, Urine MS negative
== END 2022-03-11 18:24 | disposition short-term general hospital (02) | DRG 751 ==
LOC: HO.ED 03-09 05:44 → HO.PADLT16 03-10 20:13
PROVIDERS: Nurse Practitioner Family; Admitting Provider Social Worker; Emergency Provider Emergency Medicine; Visit Provider Social Worker
DX: F29 Unspecified psychosis not due to a substance or known physiological condition (principal); F11.10 Opioid abuse, uncomplicated; F14.10 Cocaine abuse, uncomplicated; F41.9 Anxiety disorder, unspecified; R94.31 Abnormal electrocardiogram [ECG] [EKG]; Z20.822 Contact with and (suspected) exposure to COVID-19; Z79.899 Other long term (current) drug therapy
CPT/HCPCS: 36415; 70450; 80053; 80061; 80307; 80358; 81025; 82077; 82947; 83036; 83735; 84439; 84443; 84484; 85025; 87635; 93005; 99285

== ENCOUNTER 2022-03-11 18:02 | Inpatient (IN) | payer OTHER, SELFPAY ==
--- NOTE | ~2022-03-11 | CT_ITS ---
EXAMINATION: CT ABDOMEN AND PELVIS WITHOUT CONTRAST CLINICAL INFORMATION: Abdominal pain and nausea. COMPARISON: None TECHNIQUE: Multidetector volumetric imaging was performed from the superior aspect of the liver through the pubic symphysis. Sagittal and coronal reformatted images were obtained on the technologist's workstation. This CT examination was performed using dose optimization techniques as appropriate, variously including the following: *Automated exposure control *Adjustment of mA and/or kV according to patient size (this includes techniques or standardized protocols for targeted exams where dose is matched to indication/reason for exam; i.e. extremities or head) *Use of iterative reconstruction technique DLP: 495 mGy-cm FINDINGS: LUNG BASES: The visualized lung bases are unremarkable. LIVER, GALLBLADDER, AND BILIARY TREE: The liver is normal in size, shape, and attenuation. No focal hepatic lesion or biliary ductal dilatation is present. The gallbladder is unremarkable with no evidence of radiopaque gallstones, gallbladder wall thickening, or obvious pericholecystic inflammatory changes. PANCREAS: Unremarkable. SPLEEN: Unremarkable. ADRENAL GLANDS: Unremarkable. KIDNEYS AND URETERS: The kidneys are normal in size, shape, and attenuation. No hydronephrosis, hydroureter, or calculi seen. No perinephric stranding. BLADDER: Unremarkable. GASTROINTESTINAL TRACT: There is scattered stool and gas seen throughout the colon without any distention. The small bowel loops are normal caliber. The stomach is mildly distended. Appendix is visualized and measured 1 cm the base and 7 mm in the mid segment. However there is no fat stranding seen. There is no appendicolith. ABDOMINAL WALL: No significant hernia is appreciated. LYMPH NODES: Normal. VASCULAR: Unremarkable. PELVIC VISCERA: Anteverted uterus appearing unremarkable. No adnexal mass or free fluid seen.. OSSEOUS STRUCTURES: Unremarkable. CT/CT abdomen pelvis wo con IMPRESSION: Moderate constipation without obstruction. Normal-appearing appendix. No radio urolith or hydroureteronephrosis. Fleischner guidelines were followed.
--- NOTE | 2022-03-11 18:04 | P.HPHOSP_ITS ---
History of Present Illness Date of Service: 03/11/22 Chief Complaint: qt prolongation 27F with polysubstance abuse, asthma, patanoia, recent sudden of mother, was admitted to inpatient psychiatry for agitation, pyshosis. EKG showed prolonged QT of 585, normal K, and Magnesium. vague historian, denies sudden cardiac in family. denies current sob or palpiations. seen by cardiology who recommended monitoring on telemtry and givin magnesium and potssium, as well as avoidin antipsychotics and other qt prolonging meds. Review of Systems Review of Systems: Yes all other systems are reviewed and are negative [facility] Medical History Chronic cough Smoker Family History Father No problems noted. Mother Family history of thyroid problem Social History Household Members: Significant Other Household Members Other:: child of Sig other Housing: Unknown / Unable to assess Unable to assess alcohol history related to: Unknown Patient Tobacco Use Status: Tobacco use Unknown Substance Use Type: Crack/Cocaine, Marijuana, Opiates and Other Advance Directives: No Advance Directives Information Provided: No service: No Sexual orientation: Don't Know Meds Allergies Allergy/AdvReac Type Severity Reaction Status Date / Time No Known Allergies Allergy Verified 06/27/20 16:17 Active Medications: Current Medications Sodium Chloride (0.9 % Sodium Chloride Flush 3 Ml Syringe) 3 ml IVFLUSH [facility] Home Medications Medication Instructions Recorded Confirmed Last Taken Type No Known Home Meds 03/09/22 03/09/22 Unknown History Physical Exam Vital Signs and Narrative: General: no acute distress HEENT: atraumatic Neck: normal to visual inspection CVS: S1, S2, RRR Resp: CTA bilateral Chest: non tender GI: soft, non tender, non distended : no CVA tenderness Skin: no rashes Extremities: no edema Neuro: Oriented X3, grossly intact Psych: cooperative, flat affect Assessment and Plan (1) Prolonged QT interval: Status: Acute Plan 27F admitted to inpatient psychiatry for aggressive behaviour, being transfered for prolonged QT prolonged QT monitor electrolytes, tele, cardio eval avoid QT prolonging meds acute psychosis management per jinny, (avoid qt prolonging meds) dvt prophylaxis - low risk, early ambulation full code Quality Stroke Does the patient have a stroke diagnosis?: No VTE Prior VTE?: No VTE Risk Level:: Medical - low VTE Device Contraindication: Treatment Not Indicated VTE Drug Contraindication: Treatment Not Indicated
[2022-03-11 18:43] VITALS: BP 137/73; PULSE 83; RESP 20; TEMP 37.1; O2SAT 97
[2022-03-12] VITALS: BP 133/62; PULSE 75; RESP 15; TEMP 36.5; O2SAT 96
--- NOTE | 2022-03-12 | ECG_ITS ---
Test Reason : qtc check Blood Pressure : / mmHG Vent. Rate : 066 BPM Atrial Rate : 066 BPM P-R Int : 110 ms QRS Dur : 082 ms QT Int : 570 ms P-R-T Axes : 012 044 041 degrees QTc Int : 597 ms Sinus rhythm with short [place] Prolonged QT Abnormal ECG When compared with ECG of 11-MAR-2022 23:33, No significant change was found Referred By: Meet Joseph Electronically Signed By:Danny Tellez
[2022-03-12 08:00] VITALS: BP 123/69; PULSE 81; RESP 16; TEMP 36.6; O2SAT 96
--- NOTE | 2022-03-12 08:31 | ECG_ITS ---
Test Reason : seizure Blood Pressure : / mmHG Vent. Rate : 060 BPM Atrial Rate : 060 BPM P-R Int : 108 ms QRS Dur : 098 ms QT Int : 656 ms P-R-T Axes : 023 083 057 degrees QTc Int : 656 ms Sinus rhythm with short [place] Prolonged QT Abnormal ECG When compared with ECG of 12-MAR-2022 09:04, QT has lengthened Referred By: Meet Joseph Electronically Signed By:Danny Tellez
[2022-03-12 08:44] LABS: Anion Gap 14 (12-20); Blood Urea Nitrogen 9 mg/dL (9-16); Calcium 9.8 mg/dL (8.4-10.2); Carbon Dioxide 23 mmol/L (22-29); Chloride 107 mmol/L (96-108); Estimated Glomerular Filt Rate > 60; Glucose Random 120 mg/dL (60-115); Magnesium 2.4 mg/dL (1.6-2.6); Potassium 4.3 mmol/L (3.3-5.1); Sodium 140 mmol/L (135-145)
--- NOTE | 2022-03-12 09:09 | MHC.CM.PN ---
CM ATTEMPTED TO MEET WITH PT WHO WAS IN BED WITH COVERS OVER HEAD CM EXPLAINED THE OBSERVATION NOTICE AND PT SAID OK , COPY WAS LEFT AT BEDSIDE. CM ATTEMPTED TO OBTAIN OTHER INFORMATION AND PT RESPONDED WITH I DON'T KNOW TO EVERYTHING. PER RECORDS, PT WAS ADMITTED FROM INPATIENT PSYCH AND LIVES WITH HER S/O. THERE IS NO PCP OR HCP ON FILE DUE TO THE NATURE OF PTS ADMISSION, HER S/O WAS NOT CONTACTED DCP TBD PENDING CRISIS EVAL RETURN TO [facility] VS HOME
--- NOTE | 2022-03-12 11:00 | HO.PM.IMPN ---
Subjective Subjective Date of Service: 03/12/22 Interval History: cc: prolonged qt interval history:no changes Cardiovascular Cardiovascular: Reports no additional cardiovascular complaints Respiratory Respiratory: Reports no additional respiratory complaints Physical Exam Vital Signs: Vital Signs: Last Vital Signs Temp 97.9 F 03/12/22 08:00 Pulse 81 03/12/22 08:00 Resp 16 03/12/22 08:00 BP 123/69 03/12/22 08:00 Pulse Ox 96 03/12/22 08:00 O2 Del Method 03/12/22 08:00 GENERAL APPEARANCE: in no acute distress. HEART: no murmurs, regular rate and rhythm. LUNGS: clear to auscultation bilaterally. ABDOMEN: soft, nontender. EXTREMITIES: no edema. PERIPHERAL PULSES: equal. NEUROLOGIC: No gross deficits, AAO X 3 Objective Data Active Medications Acetaminophen (Acetaminophen 325 Mg Tablet) 650 mg PO Q6H PRN PRN Reason: Headache/Pain Mild Scale (1-3) Sodium Chloride (0.9 % Sodium Chloride Flush 3 Ml Syringe) 3 ml IVFLUSH QSHIFT NATALIE Last Admin: 03/12/22 07:35 Dose: Not Given Documented By: KELECHI Non-Admin Reason: No Access Labs CBC & Chem 7: 03/12/22 07:50 Labs: Laboratory Results - last 24 hr 03/12/22 07:50 Anion Gap 14 Estim Creat Clear Calc TNP Estimated GFR > 60 Random Glucose 120 H Calcium 9.8 Magnesium 2.4 Assessment and Plan (1) Prolonged QT interval: Status: Acute Plan 27F admitted to inpatient psychiatry for aggressive behaviour, being transfered for prolonged QT prolonged QT still prolonged - 595 continue tele, cardio following avoid QT prolonging meds acute psychosis management per jinny, (avoid qt prolonging meds) dvt prophylaxis - low risk, early ambulation full code Quality Stroke Does the patient have a stroke diagnosis?: No VTE Prior VTE?: No VTE Risk Level:: Medical - low VTE Device Contraindication: Treatment Not Indicated VTE Drug Contraindication: Treatment Not Indicated
--- NOTE | 2022-03-12 11:07 | P.PNCA_ITS ---
Subjective Subjective Date of Service: 03/12/22 Interval history: Being monitor on telemetry. Significant QT prolongation. No torsades. Continues to be paranoid. Saying she does not remember anything about her previous family history or family. Physical Exam Vital Signs: Last Vital Signs Temp 97.9 F 03/12/22 08:00 Pulse 81 03/12/22 08:00 Resp 16 03/12/22 08:00 BP 123/69 03/12/22 08:00 Pulse Ox 96 03/12/22 08:00 O2 Del Method 03/12/22 08:00 GENERAL APPEARANCE: in no acute distress. HEART: no murmurs, regular rate and rhythm. LUNGS: clear to auscultation bilaterally. ABDOMEN: soft, nontender. EXTREMITIES: no edema. PERIPHERAL PULSES: equal. NEUROLOGIC: No gross deficits, AAO X 3 Objective Labs and Meds Result diagrams: 03/12/22 07:50 Lab results: Laboratory Results - last 24 hr 03/12/22 07:50 Sodium 140 Potassium 4.3 Chloride 107 Carbon Dioxide 23 Anion Gap 14 BUN 9 Creatinine 0.74 Estim Creat Clear Calc TNP Estimated GFR > 60 Random Glucose 120 H Calcium 9.8 Magnesium 2.4 Progress Note: A&P Assessment and plan (1) Prolonged QT interval: Status: Acute (2) Psychosis: Status: Acute Plan 27-year-old female with polysubstance abuse presenting with paranoia. She has significantly prolonged QT interval. She has been transferred from inpatient psych unit to intermediate care for telemetry monitoring. No arrhythmia noticed on telemetry. EKG today is again showing QT interval of 595 milliseconds. Her lack to lytes are within normal limits currently. The etiology of this QT prolongation can be related to drug abuse. She does not remember what she took and there is possibility that the drugs were adulterated. In any case we need to monitor on telemetry closely. She will need daily EKGs to see if her QT interval is improving. She cannot get any anti psychotic medications currently because almost all of them would have some degree of QT prolongation and her QT is close to 600 milliseconds currently before medica tions. I think she can get benzodiazepines if she is agitated. I will discuss the case with electrophysiology if QT interval does not improve with drug washout. Thank you for allowing me to participate in the care of your patient. Please feel free to contact me if you have any questions. Time Spent With Patient Time: Total time spent is greater than 50% in coordination of care (as documented) at patient's floor/unit and/or counseling patient: Progress Note: Quality Stroke Does the patient have a stroke diagnosis?: No Procedures Date of Service Date of Service: 03/12/22
[2022-03-12 11:49] VITALS: BP 132/80; PULSE 86; RESP 16; TEMP 36.6; O2SAT 92
[2022-03-12 15:09] VITALS: BP 142/69; PULSE 89; RESP 18; TEMP 37.2; O2SAT 98
[2022-03-12] MEDS: Acetaminophen 325 MG TABLET 650 MG PO (16:40)
[2022-03-12 18:51] VITALS: BP 120/58; PULSE 63; RESP 18; TEMP 36.9; O2SAT 96
[2022-03-12 19:15] VITALS: BP 135/81; PULSE 66; RESP 19; TEMP 36.6; O2SAT 98
[2022-03-12 19:20] LABS: Glucose, Whole Blood 137 mg/dL (60-115)
[2022-03-12] MEDS: diazePAM 10 MG/2 ML CARTRIDGE 5 MG IM (19:35)
--- NOTE | 2022-03-12 19:44 | PM.EVENT ---
Event Note Date of Service: 03/12/22 Event Note: ?Seizure: Patient had an episode of whole body shaking around 19:30 on 03/12/2022. FIXED INCOME ANALYST was called. Upon checking with the patient patient has pupils equal and reactive, patient follows simple commands but drowsy. Patient had couple episodes of vomiting. Reported abdominal discomfort. Mildly tender diffusely. Fingerstick glucose was 132 is Vitals was stable Exam nonfocal Patient was given Valium 5 mg IM Seizure precautions Valium 5 mg q.6 p.r.n. for seizure EEG Neurology consult Seizure precautions Abdominal discomfort: Patient had couple of episodes of nausea and vomiting. Mild diffuse abdominal tenderness noted Patient's urine test was negative Will obtain CT abdomen Cannot use the Zofran except trauma given prolonged QTC. Prolonged QTC: EKG showed QTC of 656. Magnesium sulfate 1 mg IV x1 Monitor on telemetry.
[2022-03-12 19:53] LABS: MANUAL DIFF FLAG NO
[2022-03-12 19:54] LABS: Basophils Percent Auto 0.3 % (0-2); Eosinophils Percent Auto 0.1 % (0-4); Hematocrit 40.3 % (37.0-47.0); Hemoglobin 13.9 g/dl (12.0-16.0); Imm Gran Abs Auto 0.04 X10*3/uL (0.00-0.03); Imm Gran Pct Auto 0.3 % (0.0-0.4); Lymphocytes Absolute Auto 2.9 X10*3/uL (1.2-4.9); Lymphocytes Percent Auto 22.6 % (20-40); Mean Corpuscular HGB Conc 34.5 g/dl (31.0-35.0); Mean Corpuscular Hemoglobin 29.3 pg (27.0-33.0); Mean Corpuscular Volume 84.8 fL (80.0-98.0); Mean Platelet Volume 10.1 fL (9.4-12.3); Monocytes Absolute Auto 1.2 X10*3/uL (0.1-1.2); Monocytes Percent Auto 9.2 % (2-11); Neutrophils Absolute Auto 8.6 x10*3/uL (2.0-8.3); Neutrophils Percent Auto 67.5 % (45-73); Platelet Count 278 X10*3/uL (160-400); Red Blood Count 4.75 X10*6/uL (4.20-5.50); Red Cell Distribution Width 13.4 % (11.0-16.0); White Blood Count 12.8 X10*3/uL (4.8-10.8)
[2022-03-12 20:08] LABS: Magnesium 2.3 mg/dL (1.6-2.6)
[2022-03-12 20:40] LABS: Troponin-I High Sensitivity < 3.5 ng/L (<3.5-17.0)
[2022-03-12 20:42] LABS: Procalcitonin 0.14 ng/mL
[2022-03-12] MEDS: Magnesium Sulfate/D5W 1 GM/100 ML PIGGYBACK IV (21:39)
[2022-03-12] MEDS: 0.9 % Sodium Chloride Flush 3 ML SYRINGE IVFLUSH (21:41)
[2022-03-13] VITALS: BP 119/61; PULSE 66; RESP 16; TEMP 36.5; O2SAT 98
--- NOTE | 2022-03-13 | EEG_ITS ---
This is a 16-channel EEG with an EKG lead. Background EEG rhythm is 10 to 12 hertz 5 to 20 microvolt posteriorly, lower amplitude fast anteriorly. Frequent lead movement and muscle artifacts are noted. Photic stimulation does not produce any significant driving. Hyperventilation is not performed. Cardiac lead does not reveal any significant abnormality. No obvious EEG abnormalities noted. IMPRESSION: Unremarkable EEG. MD SHERIN Rivera/GREGORIO / [id number]
[2022-03-13 03:55] VITALS: BP 121/66; PULSE 78; RESP 15; TEMP 36.5; O2SAT 98
[2022-03-13 07:47] VITALS: BP 127/69; PULSE 69; RESP 18; TEMP 36.9; O2SAT 100
[2022-03-13] MEDS: diazePAM 10 MG/2 ML CARTRIDGE 5 MG IVPUSH (09:50)
--- NOTE | 2022-03-13 11:36 | P.CNNE_ITS ---
History of Present Illness Data of Consult Service Date: 03/13/22 Primary Care Provider: Unknown Physician HPI Reason for consult: Question seizure disorder 27 years old woman who has past medical history of polydrug abuse apparently had of in the family recently and was on psychiatric floor when noted to be agitated and brought to medical floor. She had multiple medical or lab issues including positive tox screen for multiple drugs and prolonged QT interval on EKG. She did not remember or stated that she did not know why she was in the hospital when I ask her. There was no known previous history of seizure disorder Review of Systems Review of Systems: No recent cold or flu-like illness. PMFSH Past Medical History Medical History Chronic cough Smoker Family History Family History Father No problems noted. Mother Family history of thyroid problem Social History Social History Household Members: Significant Other Household Members Other:: child of Sig other Housing: Unknown / Unable to assess Unable to assess alcohol history related to: Unknown Patient Tobacco Use Status: Tobacco use Unknown Substance Use Type: Crack/Cocaine, Marijuana, Opiates and Other Advance Directives: No Advance Directives Information Provided: No service: No Current occupational status: unemployed Sexual orientation: Don't Know Meds Allergies Allergy/AdvReac Type Severity Reaction Status Date / Time No Known Allergies Allergy Verified 06/27/20 16:17 Active Medications: Current Medications Acetaminophen (Acetaminophen 325 Mg Tablet) 650 mg PO Q6H PRN PRN Reason: Headache/Pain Mild Scale (1-3) Last Admin: 03/12/22 16:40 Dose: 650 mg Diazepam (Diazepam 10 Mg/2 Ml Cartridge) 5 mg IVPUSH Q6H PRN PRN Reason: Seizures Last Admin: 03/13/22 09:50 Dose: 5 mg Sodium Chloride (0.9 % Sodium Chloride Flush 3 Ml Syringe) 3 ml IVFLUSH [facility] Last Admin: 03/13/22 08:00 Dose: Not Given Home Medications Medication Instructions Recorded Confirmed Last Taken Type No Known Home Meds 03/09/22 03/09/22 Unknown History Physical Exam Vital Signs: Vital Signs: Last Vital Signs Temp 98.5 F 03/13/22 07:47 Pulse 69 03/13/22 07:47 Resp 18 03/13/22 07:47 BP 127/69 03/13/22 07:47 Pulse Ox 100 03/13/22 07:47 O2 Del Method 03/13/22 07:47 Neuro: Other: Alert and awake with normal spontaneity of speech fluency comprehension and anxious affect. There was no tremor or ataxia. No nystagmus was noted. Face was symmetrical. Visual jackson are full. There was no focal weakness. Deep tendon reflexes were trace to absent with flexor plantars. Results Labs CBC & Chem 7: 03/12/22 19:48 03/12/22 07:50 Labs: Short CBC 03/12/22 Range/Units 19:48 WBC 12.8 H (4.8-10.8) X10*3/uL Hgb 13.9 (12.0-16.0) g/dl Hct 40.3 (37.0-47.0) % Plt Count 278 (160-400) X10*3/uL Noncontrast head CT did not reveal any significant abnormality per Assessment and Plan (1) Encephalopathy: Status: Acute Multifactorial encephalopathy including exposure to multiple drug of abuse. At this time index of suspicion for seizure disorder epilepsy was low. If any overt seizure-like episode occurs, she could be re-evaluated. Otherwise appropriate management for metabolic toxic etiology is recommended Procedures Date of Service Date of Service: 03/13/22
[2022-03-13 11:37] VITALS: BP 131/69; PULSE 58; RESP 20; TEMP 37.3; O2SAT 96
--- NOTE | 2022-03-13 13:56 | PC.NURSE ---
Pt refusing to answer questions and follow commands at times for assessments. Earlier this morning pt began to have fake seizures and pretend to vomit, MD was informed and arrived to bedside, confirmed pt is not having seizures. ECG was obtained per MD verbal order to assess QTC and tele monitor was placed back on pt. The pt refused to respond as to why she was acting this way. Afterwards pt would get out of bed and move around the room and lay down on the floor, refusing to get up. Security was called and arrived to pt's room along with multiple other staff members including the cold rolling supervisor and corporate general manager. Pt was spoken to and assisted back to bed. Sitter at bedside after this event and per MD ok to administer PRN med for agitation, not only for seizures. IV med administered w/ + effect. Sitter at bedside assisting with care and security monitored pt for a few moments after event occurred. Fluids were d/c'ed as ordered.
--- NOTE | 2022-03-13 14:32 | P.PNCA_ITS ---
Subjective Subjective Date of Service: 03/13/22 Interval history: Seen at bedside, QTc 595 msec. No arrhythmia. Physical Exam Vital Signs: Last Vital Signs Temp 99.2 F 03/13/22 11:37 Pulse 58 03/13/22 11:37 Resp 20 03/13/22 11:37 BP 131/69 03/13/22 11:37 Pulse Ox 96 03/13/22 11:37 O2 Del Method 03/13/22 11:37 GENERAL APPEARANCE: in no acute distress. HEART: no murmurs, regular rate and rhythm. LUNGS: clear to auscultation bilaterally. ABDOMEN: soft, nontender. EXTREMITIES: no edema. PERIPHERAL PULSES: equal. NEUROLOGIC: No gross deficits, AAO X 3 Objective Labs and Meds Result diagrams: 03/12/22 19:48 03/12/22 07:50 Lab results: Laboratory Results - last 24 hr 03/12/22 03/12/22 03/12/22 19:16 19:48 19:48 WBC 12.8 H RBC 4.75 Hgb 13.9 Hct 40.3 MCV 84.8 MCH 29.3 MCHC 34.5 RDW 13.4 Plt Count 278 MPV 10.1 Immature Gran % (Auto) 0.3 Neut % (Auto) 67.5 Lymph % (Auto) 22.6 [place] % (Auto) 9.2 Eos % (Auto) 0.1 Baso % (Auto) 0.3 Lymph # (Auto) 2.9 [place] # (Auto) 1.2 Eos # (Auto) 0.0 Baso # (Auto) 0.0 Abs Immat Gran (auto) 0.04 H Absolute Neuts (auto) 8.6 H Absolute Nucleated RBC 0.000 Nucleated RBC % (auto) 0.0 POC Glucose 137 H Magnesium Troponin I High Sens < 3.5 Procalcitonin 03/12/22 03/12/22 19:48 19:48 WBC RBC Hgb Hct MCV MCH MCHC RDW Plt Count MPV Immature Gran % (Auto) Neut % (Auto) Lymph % (Auto) [place] % (Auto) Eos % (Auto) Baso % (Auto) Lymph # (Auto) [place] # (Auto) Eos # (Auto) Baso # (Auto) Abs Immat Gran (auto) Absolute Neuts (auto) Absolute Nucleated RBC Nucleated RBC % (auto) POC Glucose Magnesium 2.3 Troponin I High Sens Procalcitonin 0.14 Imaging Radiologist's impression: Impressions Abdomen/Pelvis CT 03/12/22 21:27 IMPRESSION: Moderate constipation without obstruction. Normal-appearing appendix. No radio urolith or hydroureteronephrosis. Fleischner guidelines were followed. Progress Note: A&P Assessment and plan (1) Prolonged QT interval: Status: Acute Plan 27-year-old female with psychosis and polysubstance abuse. She has significantly abnormal QT and her. Electrolytes were repleted although there were fairly normal looking. Her QT interval has worsened. Luckily no arrhythmia or torsades has been noticed. Continue monitor on telemetry atrial QT interval improves. If any Torsades then she may need lidocaine drip. Thank you for allowing me to participate in the care of your patient. Please fe el free to contact me if you have any questions. Time Spent With Patient Time: Total time spent is greater than 50% in coordination of care (as documented) at patient's floor/unit and/or counseling patient: Progress Note: Quality Stroke Does the patient have a stroke diagnosis?: No Procedures Date of Service Date of Service: 03/13/22
--- NOTE | 2022-03-13 15:40 | P.PNIM_ITS ---
Subjective Subjective Date of Service: 03/13/22 Interval History: cc: qt prolongation interval history: convulsions Review of Systems Review of Systems: Yes Unobtainable due to mental status Physical Exam Vital Signs: Vital Signs: Last Vital Signs Temp 99.2 F 03/13/22 11:37 Pulse 58 03/13/22 11:37 Resp 20 03/13/22 11:37 BP 131/69 03/13/22 11:37 Pulse Ox 96 03/13/22 11:37 O2 Del Method 03/13/22 11:37 General: Alert, not participatory Resp: CTA bilateral, no accessory muscles used CVS: S1,S2,RRR GI: soft, non tender, non distended Neuro: motor grossly intact, alert Psych: strange affect, impaired insight Objective Data Active Medications Acetaminophen (Acetaminophen 325 Mg Tablet) 650 mg PO Q6H PRN PRN Reason: Headache/Pain Mild Scale (1-3) Last Admin: 03/12/22 16:40 Dose: 650 mg Documented By: NAZ Diazepam (Diazepam 10 Mg/2 Ml Cartridge) 5 mg IVPUSH Q6H PRN PRN Reason: Seizures Last Admin: 03/13/22 09:50 Dose: 5 mg Documented By: ARVIND Sodium Chloride (0.9 % Sodium Chloride Flush 3 Ml Syringe) [facility] Last Admin: 03/13/22 08:00 Dose: Not Given Documented By: ARVIND Non-Admin Reason: assessed Labs CBC & Chem 7: 03/12/22 19:48 03/12/22 07:50 Labs: Laboratory Results - last 24 hr 03/12/22 03/12/22 03/12/22 19:16 19:48 19:48 MCV 84.8 MCH 29.3 MCHC 34.5 RDW 13.4 Plt Count 278 MPV 10.1 Immature Gran % (Auto) 0.3 Neut % (Auto) 67.5 Lymph % (Auto) 22.6 [place] % (Auto) 9.2 Eos % (Auto) 0.1 Baso % (Auto) 0.3 Lymph # (Auto) 2.9 [place] # (Auto) 1.2 Eos # (Auto) 0.0 Baso # (Auto) 0.0 Abs Immat Gran (auto) 0.04 H Absolute Neuts (auto) 8.6 H Absolute Nucleated RBC 0.000 Nucleated RBC % (auto) 0.0 POC Glucose 137 H Magnesium Troponin I High Sens < 3.5 Procalcitonin 03/12/22 03/12/22 19:48 19:48 MCV MCH MCHC RDW Plt Count MPV Immature Gran % (Auto) Neut % (Auto) Lymph % (Auto) [place] % (Auto) Eos % (Auto) Baso % (Auto) Lymph # (Auto) [place] # (Auto) Eos # (Auto) Baso # (Auto) Abs Immat Gran (auto) Absolute Neuts (auto) Absolute Nucleated RBC Nucleated RBC % (auto) POC Glucose Magnesium 2.3 Troponin I High Sens Procalcitonin 0.14 Assessment and Plan (1) Prolonged QT interval: Status: Acute Plan 27F admitted to inpatient psychiatry for aggressive behaviour, being transfered for prolonged QT prolonged QT still prolonged >600 continue tele, cardio following avoid QT prolonging meds convulsions consistent with non epileptic seizures, 1:1 sitter to avoid self harm acute psychosis management per jinny, (avoid qt prolonging meds) dvt prophylaxis - low risk, early ambulation full code Quality Stroke Does the patient have a stroke diagnosis?: No VTE Prior VTE?: No VTE Risk Level:: Medical - low VTE Device Contraindication: Treatment Not Indicated VTE Drug Contraindication: Treatment Not Indicated
[2022-03-13] MEDS: Nicotine Polacrilex 2 MG GUM BUCCAL ×2 (16:10→21:39)
[2022-03-13 20:00] VITALS: BP 121/72; PULSE 53; RESP 18; TEMP 36.7; O2SAT 98
[2022-03-13] MEDS: 0.9 % Sodium Chloride Flush 3 ML SYRINGE IVFLUSH (21:39)
[2022-03-13] MEDS: Melatonin 3 MG TABLET 6 MG PO (21:49)
[2022-03-14] VITALS (7 sets, daily range): BP systolic 99–142; BP diastolic 51–85; PULSE 55–91; RESP 16–19; TEMP 35.7–36.4; O2SAT 96–99
--- NOTE | 2022-03-14 | ECG_ITS ---
Test Reason : qt Blood Pressure : / mmHG Vent. Rate : 070 BPM Atrial Rate : 070 BPM P-R Int : 108 ms QRS Dur : 070 ms QT Int : 508 ms P-R-T Axes : 026 046 042 degrees QTc Int : 548 ms Sinus rhythm with short NV Prolonged QT Abnormal ECG When compared to the previous EKG of QTc improving but still significantly prolonged Referred By: Meet Joseph Electronically Signed By:Danny Tellez
[2022-03-14] MEDS: LORazepam 0.5 MG TABLET PO ×2 (00:30→20:43)
--- NOTE | 2022-03-14 09:03 | PHA.MEDREC ---
Pharmacy Consult ? Medication Reconciliation Pharmacy has completed the medication reconciliation. Patient discharged from psych unit on 03/11 and transfer to medical floor.
--- NOTE | 2022-03-14 09:49 | PM.PNCARD ---
Subjective Subjective Date of Service: 03/14/22 Interval history: Seen and examined at bedside. Denying any symptoms. Telemetry reviewed and she has no evidence of PVCs or any concern for torsades. EKG this morning is showing improvement in QT interval to 548. Physical Exam Vital Signs: Last Vital Signs Temp 97.5 F 03/14/22 07:28 Pulse 73 03/14/22 07:28 Resp 16 03/14/22 07:28 BP 111/64 03/14/22 07:28 Pulse Ox 99 03/14/22 07:28 O2 Del Method 03/14/22 07:28 GENERAL APPEARANCE: in no acute distress. HEART: no murmurs, regular rate and rhythm. LUNGS: clear to auscultation bilaterally. ABDOMEN: soft, nontender. EXTREMITIES: no edema. PERIPHERAL PULSES: equal. NEUROLOGIC: No gross deficits, AAO X 3 Objective Labs and Meds Result diagrams: 03/12/22 19:48 03/12/22 07:50 Progress Note: A&P Assessment and plan (1) Prolonged QT interval: Status: Acute Plan 27-year-old female presenting with psychosis in the setting of polysubstance abuse. She was also noted to have significantly prolonged QT interval. No torsades of PVCs noted. Electrolytes were repleted. QT interval is improving today. She has been stable on telemetry since admission. Potentially can go back to inpatient psych. Cannot use any anti psychotic medications currently because QT interval still quite prolonged. I think the likely cause is drugs and hopefully as a washout her QT interval will improve further. Thank you for allowing me to participate in the care of your patient. Please feel free to contact me if you have any questions. Time Spent With Patient Time: Total time spent is greater than 50% in coordination of care (as documented) at patient's floor/unit and/or counseling patient: Progress Note: Quality Stroke Does the patient have a stroke diagnosis?: No Procedures Date of Service Date of Service: 03/14/22
[2022-03-14] MEDS: 0.9 % Sodium Chloride Flush 3 ML SYRINGE IVFLUSH (10:48)
--- NOTE | 2022-03-14 11:22 | P.PNIM_ITS ---
Subjective Subjective Date of Service: 03/14/22 Interval History: cc: qt prolongation interval history: no complaints, minimally conversational Review of Systems Review of Systems: Yes Unobtainable due to mental status Physical Exam Vital Signs: Vital Signs: Last Vital Signs Temp 97.5 F 03/14/22 07:28 Pulse 73 03/14/22 07:28 Resp 16 03/14/22 07:28 BP 111/64 03/14/22 07:28 Pulse Ox 99 03/14/22 07:28 O2 Del Method 03/14/22 07:28 General: Alert, not participatory Resp: CTA bilateral, no accessory muscles used CVS: S1,S2,RRR GI: soft, non tender, non distended Neuro: motor grossly intact, alert Psych: strange affect, impaired insight Objective Data Active Medications Acetaminophen (Acetaminophen 325 Mg Tablet) 650 mg PO Q6H PRN PRN Reason: Headache/Pain Mild Scale (1-3) Last Admin: 03/12/22 16:40 Dose: 650 mg Documented By: NAZ Diazepam (Diazepam 10 Mg/2 Ml Cartridge) 5 mg IVPUSH Q6H PRN PRN Reason: Seizures Last Admin: 03/13/22 09:50 Dose: 5 mg Documented By: VICENTE-ANT Melatonin (Melatonin 3 Mg Tablet) 6 mg PO BEDTIME PRN PRN Reason: Sleep Last Admin: 03/13/22 21:49 Dose: 6 mg Documented By: MORRINL Sodium Chloride (0.9 % Sodium Chloride Flush 3 Ml Syringe) 3 ml IVFLUSH [facility] Last Admin: 03/14/22 10:48 Dose: 3 ml Documented By: GILMA Labs CBC & Chem 7: 03/12/22 19:48 03/12/22 07:50 Assessment and Plan (1) Prolonged QT interval: Status: Acute Plan 27F admitted to inpatient psychiatry for aggressive behaviour, being transfered for prolonged QT prolonged QT still prolonged but improved continue tele, cardio following avoid QT prolonging meds convulsions consistent with non epileptic seizures, 1:1 sitter to avoid self harm acute psychosis management per jinny, (avoid qt prolonging meds) dvt prophylaxis - low risk, early ambulation full code Quality Stroke Does the patient have a stroke diagnosis?: No VTE Prior VTE?: No VTE Risk Level:: Medical - low VTE Device Contraindication: Treatment Not Indicated VTE Drug Contraindication: Treatment Not Indicated
[2022-03-14] MEDS: Nicotine Polacrilex 2 MG GUM 1 MG BUCCAL ×2 (13:26→20:44)
[2022-03-14] MEDS: Melatonin 3 MG TABLET 6 MG PO (19:52)
[2022-03-15] MEDS: 0.9 % Sodium Chloride Flush 3 ML SYRINGE IVFLUSH ×4 (01:10→19:39)
[2022-03-15 03:54] VITALS: BP 121/67; PULSE 61; RESP 18; TEMP 36; O2SAT 98
--- NOTE | 2022-03-15 06:00 | ECG_ITS ---
Test Reason : cp Blood Pressure : / mmHG Vent. Rate : 071 BPM Atrial Rate : 071 BPM P-R Int : 114 ms QRS Dur : 088 ms QT Int : 452 ms P-R-T Axes : 025 067 046 degrees QTc Int : 491 ms Normal sinus rhythm Prolonged QT Abnormal ECG When compared with ECG of 14-MAR-2022 10:46, QT has shortened Referred By: Yelena Cabrera Electronically Signed By:CHIKI FINNEY
[2022-03-15 07:27] VITALS: BP 128/86; PULSE 86; RESP 18; TEMP 35.8; O2SAT 98
[2022-03-15] MEDS: Nicotine Polacrilex 2 MG GUM 1 MG BUCCAL ×3 (09:18→23:09)
[2022-03-15 11:07] VITALS: BP 127/74; PULSE 77; RESP 15; TEMP 36.1; O2SAT 97
--- NOTE | 2022-03-15 11:43 | P.DS_ITS ---
DS: Providers Provider Date of Service: 03/15/22 Date of admission: 03/13/22 13:48 Primary care physician: Unknown Physician Consults: 03/11/22 18:03 Consult to Cardiology Routine Consulting Provider: Danny Tellez Reason for consultation: qt 03/12/22 07:44 Consult to Cardiology Routine Consulting Provider: Danny Tellez Reason for consultation: qtc prolongation Has provider been notified: Yes 03/12/22 19:42 Consult to Neurology Routine Consulting Provider: [facility] Reason for consultation: Seizure 03/13/22 09:38 Consult for Sitter Routine Reason for consultation: risk for self harm DS: Diagnosis Discharge Diagnosis (1) Prolonged QT interval: Status: Acute DS: Summary Hospital Course Hospital Course: from initial hpi: Chief Complaint: qt prolongation 27F with polysubstance abuse, asthma, patanoia, recent sudden of mother, was admitted to inpatient psychiatry for agitation, pyshosis. EKG showed prolonged QT of 585, normal K, and Magnesium. vague historian, denies sudden cardiac in family. denies current sob or palpiations. seen by cardiology who recommended monitoring on telemtry and givin magnesium and potssium, as well as avoidin antipsychotics and other qt prolonging meds. hospital course: Patient was admitted for prolonged QT. She was monitored on telemetry, she had no torsade, QT eventually improved to 491 at time of discharge. This was likely due to ingestion of illicit substances. During hospitalization patient had convulsions which were consistent with nonepileptic seizures, they did not recur. Patient will be transferred back to Adult Psychiatry. Recommendations are to hold off on any QT prolonging medications were at least 1 more day and to follow-up EKG tomorrow, if normalized can then slowly restart antipsychotics if needed. Time Spent with Patient Time attestation: Total time spent providing and/or coordinating discharge services: Discharge coordination time: Greater than 30 minutes Quality: Safe Use of Opioids Does Pt have an Active Cancer Diagnosis on the Problem List?: No Quality: Stroke Does the patient have a stroke diagnosis?: No Physical Exam Vital Signs: Vital Signs: Last Vital Signs Temp 96.9 F 03/15/22 11:07 Pulse 77 03/15/22 11:07 Resp 15 03/15/22 11:07 BP 127/74 03/15/22 11:07 Pulse Ox 97 03/15/22 11:07 O2 Del Method 03/15/22 11:07 GENERAL APPEARANCE: in no acute distress, pleasant. NECK: no carotid bruit, no jugular venous distention. SKIN: no suspicious lesions, warm and dry. HEART: no murmurs, regular rate and rhythm. LUNGS: clear to auscultation bilaterally. ABDOMEN: soft, nontender. EXTREMITIES: no edema. PERIPHERAL PULSES: equal. NEUROLOGIC: No gross deficits, AAO X 3 Discharge Plan Discharge Disposition: Xfer Other Referrals: Physician,Unknown J [Primary Care Provider] - 1 Week Discharge Medications: No Action No Known Home Meds Discharge Orders: Discharge Order (Routine); Ordered 03/15/22 Ordered By: Meet Joseph Forms: Patient Portal Discharge page Care Plan Goals: recovery Health Concerns: qt Plan of Treatment: monitor ekg, hold off on qt prolonging meds for one more day provided qt continues to improve Assessment: see above
--- NOTE | 2022-03-15 11:52 | PM.PNCARD ---
Subjective Subjective Date of Service: 03/15/22 Interval history: Feeling better. QT interval has improved further. No arrhythmia on telemetry. Physical Exam Vital Signs: Last Vital Signs Temp 96.9 F 03/15/22 11:07 Pulse 77 03/15/22 11:07 Resp 15 03/15/22 11:07 BP 127/74 03/15/22 11:07 Pulse Ox 97 03/15/22 11:07 O2 Del Method 03/15/22 11:07 GENERAL APPEARANCE: in no acute distress, pleasant. NECK: no carotid bruit, no jugular venous distention. SKIN: no suspicious lesions, warm and dry. HEART: no murmurs, regular rate and rhythm. LUNGS: clear to auscultation bilaterally. ABDOMEN: soft, nontender. EXTREMITIES: no edema. PERIPHERAL PULSES: equal. NEUROLOGIC: No gross deficits, AAO X 3 Objective Labs and Meds Result diagrams: 03/12/22 19:48 03/12/22 07:50 Progress Note: A&P Assessment and plan (1) Prolonged QT interval: Status: Acute Plan [age] female polysubstance abuse presenting with psychosis and prolonged QT interval. Prolonged QT was likely due to drug abuse. With watchful waiting and electrolyte repletion, her QT interval as improved. Can cautiously use antipsychotics. I would wait till tomorrow repeat EKG before starting any antipsychotics (ideally should be avoided if she is improving already.) Keep potassium close to 4.5 and magnesium more than 2 before adding any anti psychotic medications. She should have repeat EKGs after addition of any medications. Thank you for allowing me to participate in the care of your patient. Please feel free to contact me if you have any questions. Time Spent With Patient Time: Total time spent is greater than 50% in coordination of care (as documented) at patient's floor/unit and/or counseling patient: Progress Note: Quality Stroke Does the patient have a stroke diagnosis?: No Procedures Date of Service Date of Service: 03/15/22
[2022-03-15 15:20] VITALS: BP 132/72; PULSE 87; RESP 14; TEMP 37.2; O2SAT 99
[2022-03-15 19:22] VITALS: BP 125/74; PULSE 85; RESP 15; TEMP 36.3; O2SAT 96
[2022-03-15] MEDS: Melatonin 3 MG TABLET 6 MG PO (19:39)
[2022-03-15] MEDS: LORazepam 0.5 MG TABLET PO (23:07)
[2022-03-15 23:31] VITALS: BP 148/85; PULSE 61; RESP 18; TEMP 36.9; O2SAT 99
--- NOTE | 2022-03-16 00:42 | PC.NURSE ---
Pt complained of increased anxiety and unable to sleep, Dr. Lee was notified, Lorazepam tab given, slept after.
== END 2022-03-16 02:41 | disposition other institution (70) | DRG 207 ==
LOC: HO.IMC 03-13 13:48 → HO.S3 03-13 16:03
PROVIDERS: Hospitalist; Admitting Provider Social Worker; PCP Internal Medicine; Visit Provider Internal Medicine
DX: R94.31 Abnormal electrocardiogram [ECG] [EKG] (principal); F29 Unspecified psychosis not due to a substance or known physiological condition; F17.210 Nicotine dependence, cigarettes, uncomplicated; J45.909 Unspecified asthma, uncomplicated; Z71.6 Tobacco abuse counseling; G40.909 Epilepsy, unspecified, not intractable, without status epilepticus
CPT/HCPCS: 36415; 74176; 80048; 82947; 83735; 84145; 84484; 85025; 93005; 95816; J3360; J3475

== ENCOUNTER 2022-03-16 02:42 | Inpatient (IN) | payer OTHER, SELFPAY ==
--- NOTE | 2022-03-16 07:00 | ECG_ITS ---
Test Reason : QTC Blood Pressure : / mmHG Vent. Rate : 070 BPM Atrial Rate : 070 BPM P-R Int : 114 ms QRS Dur : 080 ms QT Int : 464 ms P-R-T Axes : 025 054 037 degrees QTc Int : 501 ms Normal sinus rhythm Prolonged QT Abnormal ECG When compared with ECG of 15-MAR-2022 10:38, No significant change was found Referred By: Maggie Savage Electronically Signed By:CHIKI FINNEY
[2022-03-16 08:16] VITALS: BP 126/83; PULSE 80; RESP 16; TEMP 36.2; O2SAT 99
[2022-03-16] MEDS: Nicotine Polacrilex 2 MG GUM BUCCAL ×5 (08:38→18:25)
--- NOTE | 2022-03-16 15:28 | HO.PSYCHPN ---
Subjective Subjective Date of Service: 03/16/22 Reason For Visit: psychosis Diagnostics Vital Signs (24Hr): Vital Signs - 24 hr 03/16/22 08:16 Temperature 97.2 F Pulse Rate 80 Respiratory Rate 16 Blood Pressure 126/83 Pulse Oximetry 99 Oxygen Delivery Method Room Air Medications Medications Current Medications Acetaminophen (Acetaminophen 325 Mg Tablet) 650 mg PO Q6H PRN PRN Reason: Headache/Pain Mild Scale (1-3) Al Hydroxide/Mg Hydroxide (Magnesium Hydrox/Alum Hydrox 30 Ml Oral.Susp) 30 ml PO Q6H PRN PRN Reason: Heartburn/Nausea Hydroxyzine HCl (Hydroxyzine Hcl 25 Mg Tablet) 25 mg PO Q6H PRN PRN Reason: Anxiety Magnesium Hydroxide (Milk Of Magnesia 30 Ml Oral.Susp) 30 ml PO DAILY PRN PRN Reason: Constipation Melatonin (Melatonin 3 Mg Tablet) 6 mg PO BEDTIME PRN PRN Reason: Sleep Nicotine (Nicotine 21 Mg Patch.Td24) 21 mg TRANSDERMA DAILY NATALIE Last Admin: 03/16/22 11:34 Dose: Not Given Nicotine Polacrilex (Nicotine Polacrilex 2 Mg Gum) 2 mg BUCCAL Q2H PRN PRN Reason: Nicotine Cravings Last Admin: 03/16/22 14:23 Dose: 2 mg Trazodone HCl (Trazodone Hcl 50 Mg Tablet) 50 mg PO BEDTIME PRN PRN Reason: Insomnia Allergies Allergies Allergy/AdvReac Type Severity Reaction Status Date / Time No Known Allergies Allergy Verified 06/27/20 16:17 Assessment & Plan I spent minutes with the patient and/or on the patient floor today, greater than?50% of which was spent counseling/coordinating care.
--- NOTE | 2022-03-16 15:34 | HO.PSYADMNOT ---
HPI Date of Service: 03/16/22 Chief Complaint: psychosis HPI Narrative: staci Hussein 03/11 Discharge summary: Ms. Hedrick is a 27 year-old woman with hx of substance use including cocaine, opioids. She was brought to [facility] [place] ED by her fiance of 6 years due to pt presenting as not talking, acting in bizarre way, not sleeping nor eting much, paranoid. Utox positive for cocaine, fentanyl, opioids and cannabinoids. In the ED- CBC with dif wnl, CMP wnl, EKG on 03/10 showed normal sinus but prolonged Qtc 567ms, K>4, Mg>2. Repeat EKG on 03/10 showed improved Qtc 519ms, troponin less than 3.5. Head CT on 03/10- no acute pathology, but showed large nasal septal perforation. On the unit, pt reports she does not know where she is is. She was seen entering other pts room. She appeared paranoia, denying that her name was [place] and suspicious of staff. Seeking reassurance from some staff as to her safety. She couldn't tell the month, year, situation. She denies SI/HI. She did report hearing voices but would not elaborate; she does appear internally preoccupied. Most collateral information gathered from Estrada (pt's fiance [phone]). Brian reports pt has been using combination of crack cocaine, heroin/fentanyl for the past 6-8 years. Brian reports 3 weeks ago her mother . It has been very stressful for for both of them. Pt then presented as not talking, minimally eating, ont sleeping, paranoid and guarded. No prior hx of psychosis. No prior hx of psychotropic medications. Per Estrada, pt was not taking any medications. Also no prior psychiatric hx. Past Psychiatric History: Inpt: none OP: none Suicide attempts: none per Estrada Past trials: none Medical Evaluation Reviewed: Yes HOSPITAL COURSE Pt admitted on a CV, 5 minutes checks as pt entering other pt's room. Pt presented as paranoid, confused and disoriented not knowing why he is here, month, date. Pt presents as guarded. Repeat EKG this morning sinus rhythm with short [place], Qtc worsened at 585ms. Cardiology recommends telemetry monitoring. Pt will be transferred to [facility]. per medicine 03/15 discharge summary: 27F with polysubstance abuse, asthma, patanoia, recent sudden of mother, was admitted to inpatient psychiatry for agitation, pyshosis. EKG showed prolonged QT of 585, normal K, and Magnesium. vague historian, denies sudden cardiac in family. denies current sob or palpiations. seen by cardiology who recommended monitoring on telemtry and givin magnesium and potssium, as well as avoidin antipsychotics and other qt prolonging meds. hospital course: Patient was admitted for prolonged QT.? She was monitored on telemetry, she had no torsade, QT eventually improved to 491 at time of discharge.? This was likely due to ingestion of illicit substances.? During hospitalization patient had convulsions which were consistent with nonepileptic seizures, they did not recur.? Patient will be transferred back to Adult Psychiatry.? Recommendations are to hold off on any QT prolonging medications were at least 1 more day and to follow-up EKG tomorrow, if? normalized can then slowly restart antipsychotics if needed. upon readmission to 03/16: found reading a book in the milieu. calm, cooperative. requesting discharge from the hospital. states she believes her state when she was admitted was due to something she had ingested that day. denies using anything other than cannabis the day of admission, believes it must have been laced (her utox had opiates, fentanyl, cocaine, and cannabis in it). in any case, she denies any SI/SIBI/HI/AVH and requests discharge. she will be referred for therapy and discharged tomorrow. Past Psychiatric History: Inpt: none OP: none Suicide attempts: none per Estrada Past trials: none h/o cutting remotely, being held overnight in the ED. no other SIB Hx. no SA Hx. Medical Evaluation Reviewed: Yes [facility] Medical History Chronic cough Smoker Family History: mother = alcohol Substance History: h/o opiates and cocaine. cannabis tobacco Diagnostics Vital Signs (24Hr): Vital Signs - 24 hr 03/16/22 08:16 Temperature 97.2 F Pulse Rate 80 Respiratory Rate 16 Blood Pressure 126/83 Pulse Oximetry 99 Oxygen Delivery Method Room Air Meds/Allergies Meds Home Medications Medication Instructions Recorded Confirmed Type No Known Home Meds 03/09/22 03/14/22 History Allergies Allergies Allergy/AdvReac Type Severity Reaction Status Date / Time No Known Allergies Allergy Verified 06/27/20 16:17 Mental Status Exam Mental Status Exam Narrative: Appearance: thin, fair hygiene in NAD Behavior: calm, cooperative psychomotor:no agitation or retardation noted Speech: spontaneous. WNL. Thought process: organized, linear, logical Thought content: no delusions or paranoia evident Mood: happy. excited. Affect: flexible, full range, appropriate SI:denies HI:denies VH/AH: denies cog: WNL. Assessment & Plan Assessment & Plan (1) Drug abuse: Status: Acute Code(s): F19.10 - Other psychoactive substance abuse, uncomplicated (2) Psychosis: Status: Acute Qualifiers: Psychosis type: unspecified psychosis type Qualified Code(s): F29 - Unspecified psychosis not due to a substance or known physiological condition Code(s): F29 - Unspecified psychosis not due to a substance or known physiological condition Plan mental status change and psychosis related to drug ingestion on day of admission. mental status has since cleared. no need for medication or psychiatric hospitalization currently. interested in therapy. will be referred for therapy and discharged tomorrow. Patient educated on: diagnosis and substance abuse Reason for continued inpatient stay Substantial Risk for: stable for discharge
[2022-03-16 18:00] VITALS: BP 139/84; PULSE 64; RESP 18; TEMP 36.8; O2SAT 98
[2022-03-16] MEDS: Melatonin 3 MG TABLET 6 MG PO (21:27)
[2022-03-16] MEDS: hydrOXYzine HCL 25 MG TABLET PO (21:29)
[2022-03-16] MEDS: traZODone HCL 50 MG TABLET PO (21:29)
[2022-03-17 06:00] VITALS: BP 149/87; PULSE 94; RESP 18; TEMP 36.7; O2SAT 96
[2022-03-17] MEDS: Nicotine Polacrilex 2 MG GUM BUCCAL ×2 (08:28→12:50)
[2022-03-17 09:30] LABS: Alanine Aminotransferase 16 U/L (0-31); Albumin Level 5.1 g/dL (3.5-5.0); Alkaline Phosphatase 68 U/L (39-117); Anion Gap 16 (12-20); Aspartate Amino Transferase 13 U/L (5-31); Bilirubin Total 0.7 mg/dL (0.0-1.0); Blood Urea Nitrogen 14 mg/dL (9-16); Calcium 9.6 mg/dL (8.4-10.2); Carbon Dioxide 21 mmol/L (22-29); Chloride 110 mmol/L (96-108); Cholesterol 143 mg/dL; Estimated Glomerular Filt Rate > 60; Glucose Fasting 105 mg/dL (60-99); HDL Cholesterol 48 mg/dL; LDL Cholesterol Calculated 77 mg/dl; Potassium 4.7 mmol/L (3.3-5.1); Sodium 142 mmol/L (135-145); Total Protein 7.9 g/dL (6.5-8.0); Triglycerides 90 mg/dL
--- NOTE | 2022-03-17 10:59 | P.DS_ITS ---
DS: Providers Provider Date of Service: 03/17/22 Date of admission: 03/16/22 02:42 Primary care physician: Unknown Physician DS: Diagnosis Discharge Diagnosis (1) Drug abuse: Status: Acute (2) Psychosis: Status: Acute DS: Medications Discharge Medications Home Medications: Home Medications Medication Instructions Recorded Confirmed No Known Home Meds 03/09/22 03/14/22 Previous Rx's Medication Instructions Recorded nicotine (polacrilex) 2 mg gum 2 mg buccal Q2H PRN Nicotine 03/17/22 Cravings 30 days #100 ea Mental Status Exam Mental Status Exam Narrative: Appearance: thin, fair hygiene in NAD Behavior: calm, cooperative psychomotor:no agitation or retardation noted Speech: spontaneous. WNL. Thought process: organized, linear, logical Thought content: no delusions or paranoia evident Mood: happy. Affect: flexible, full range, appropriate SI:denies HI:denies VH/AH: denies cog: WNL. Data Data Completed and Pending Completed studies during hospitalization [Text1]: 03/17/22 08:14 Sodium 142 Potassium 4.7 Chloride 110 H Carbon Dioxide 21 L Anion Gap 16 BUN 14 D Creatinine 0.77 Estim Creat Clear Calc TNP Estimated GFR > 60 Fasting Glucose 105 H Calcium 9.6 Total Bilirubin 0.7 AST 13 ALT 16 Alkaline Phosphatase 68 Total Protein 7.9 Albumin 5.1 H Triglycerides 90 Cholesterol 143 LDL Cholesterol, Calc 77 HDL Cholesterol 48 D DS: Summary Hospital Course Hospital Course: per 03/16 admission note: staci Savage 03/11 Discharge summary: Ms. Hedrick is a 27 year-old woman with hx of substance use including cocaine, opioids. She was brought to [facility] ED by her fiance of 6 years due to pt presenting as not talking, acting in bizarre way, not sleeping nor eting much, paranoid. Utox positive for cocaine, fentanyl, opioids and cannabinoids. In the ED- CBC with dif wnl, CMP wnl, EKG on 03/10 showed normal sinus but prolonged Qtc 567ms, K>4, Mg>2. Repeat EKG on 03/10 showed improved Qtc 519ms, troponin less than 3.5. Head CT on 03/10- no acute pathology, but showed large nasal septal perforation. On the unit, pt reports she does not know where she is is. She was seen entering other pts room. She appeared paranoia, denying that her name was [place] and suspicious of staff. Seeking reassurance from some staff as to her safety. She couldn't tell the month, year, situation. She denies SI/HI. She did report hearing voices but would not elaborate; she does appear internally preoccupied. Most collateral information gathered from Estrada (pt's fiance [phone]). Brian reports pt has been using combination of crack cocaine, heroin/fentanyl for the past 6-8 years. Brian reports 3 weeks ago her mother . It has been very stressful for for both of them. Pt then presented as not talking, minimally eating, ont sleeping, paranoid and guarded. No prior hx of psychosis. No prior hx of psychotropic medications. Per Estrada, pt was not taking any medications. Also no prior psychiatric hx. Past Psychiatric History: Inpt: none OP: none Suicide attempts: none per Estrada Past trials: none Medical Evaluation Reviewed: Yes HOSPITAL COURSE Pt admitted on a CV, 5 minutes checks as pt entering other pt's room. Pt presented as paranoid, confused and disoriented not knowing why he is here, month, date. Pt presents as guarded. Repeat EKG this morning sinus rhythm with short [place], Qtc worsened at 585ms. Cardiology recommends telemetry monitoring. Pt will be transferred to [facility] [place]. per medicine 03/15 discharge summary: 27F with polysubstance abuse, asthma, patanoia, recent sudden of mother, was admitted to inpatient psychiatry for agitation, pyshosis. EKG showed prolonged QT of 585, normal K, and Magnesium. vague historian, denies sudden cardiac in family. denies current sob or palpiations. seen by cardiology who recommended monitoring on telemtry and givin magnesium and potssium, as well as avoidin antipsychotics and other qt prolonging meds. hospital course: Patient was admitted for prolonged QT.? She was monitored on telemetry, she had no torsade, QT eventually improved to 491 at time of discharge.? This was likely due to ingestion of illicit substances.? During hospitalization patient had convulsions which were consistent with nonepileptic seizures, they did not recur.? Patient will be transferred back to Adult Psychiatry.? Recommendations are to hold off on any QT prolonging medications were at least 1 more day and to follow-up EKG tomorrow, if? normalized can then slowly restart antipsychotics if needed. upon readmission to [facility] 03/16: found reading a book in the milieu.? calm, cooperative.? requesting discharge from the hospital.? states she believes her state when she was admitted was due to something she had ingested that day.? denies using anything other than cannabis the day of admission, believes it must have been laced (her utox had opiates, fentanyl, cocaine, and cannabis in it). ? in any case, she denies any SI/SIBI/HI/AVH and requests discharge.? she will be referred for therapy and discharged tomorrow. Past Psychiatric History: Inpt: none OP: none Suicide attempts: none per Estrada Past trials: none ? h/o cutting remotely, being held overnight in the ED.? no other SIB Hx.? no SA Hx. Medical Evaluation Reviewed: Yes [facility] Medical History Chronic cough Smoker Family History: mother = alcohol Substance History: h/o opiates and cocaine. cannabis tobacco 03/17: stable, no change. no safety concerns. discharged to outpt care per pt request. Precis: mental status change and psychosis related to drug ingestion on day of admission.? mental status has since cleared. no need for medication or psychiatric hospitalization currently.? interested in therapy. referred for therapy and discharged the day following admission. Time Spent with Patient Time attestation: Total time spent providing and/or coordinating discharge services: Time spent: Greater than 30 minutes Discharge Plan Discharge Patient Disposition: Home, Self-Care Discharge Diagnosis: encephalopathy due to toxic ingestion polysubstance use disorder Referrals: Danny Byers (Therapy) [Other] - 03/18/22 9:30 am (IN OFFICE APPOINTMENT) Ruthie Dunbar (Psychiatry) [Other] - 04/14/22 2:30 pm (TELEHEALTH APPOINTMENT -Please check your email for the zoom link the day of your appointment. If you do not receive it, please call the number listed above. ) Ruthie Dunbar (Psychiatry) [Other] - 05/19/22 10:00 am (TELEHEALTH APPOINTMENT -Medication Management ) [facility] [Physician] - 1 Week Discharge Medications: New nicotine (polacrilex) 2 mg Gum 2 mg buccal Q2H PRN (Reason: Nicotine Cravings) 30 Days Qty: 100 0RF No Action No Known Home Meds Discharge Orders: Discharge Order (Routine); Ordered 03/17/22 Ordered By: Wiliam Kee Diet: Advance to usual diet Activity on Discharge: As tolerated Stand Alone Forms: Patient Portal Discharge page, Community Support Care Plan Goals: remain safe, stable, and sober in the outpatient treatment setting Health Concerns: none Plan of Treatment: take medications as prescribed, attend appointments as scheduled Assessment: not at imminent risk of harm to self or others
== END 2022-03-17 14:44 | disposition home or self-care (01) | DRG 751 ==
PROVIDERS: Admitting Provider Psychiatry & Neurology Psychiatry; Visit Provider Psychiatry & Neurology Psychiatry
DX: F29 Unspecified psychosis not due to a substance or known physiological condition (principal); F17.210 Nicotine dependence, cigarettes, uncomplicated; F19.10 Other psychoactive substance abuse, uncomplicated; Z56.0 Unemployment, unspecified; Z71.6 Tobacco abuse counseling
CPT/HCPCS: 36415; 80053; 80061; 93005

== ENCOUNTER 2022-03-22 11:45 | Emergency (ER) | payer OTHER, SELFPAY ==
[2022-03-22 11:47] VITALS: BP 144/89; PULSE 108; RESP 20; TEMP 36.6; O2SAT 97; BMI 23.3
--- NOTE | 2022-03-22 11:59 | ECG_ITS ---
Test Reason : PHYSIC Blood Pressure : / mmHG Vent. Rate : 064 BPM Atrial Rate : 064 BPM P-R Int : 110 ms QRS Dur : 072 ms QT Int : 528 ms P-R-T Axes : 022 032 011 degrees QTc Int : 544 ms Sinus rhythm with short [place] Prolonged QT Abnormal ECG When compared with ECG of 16-MAR-2022 13:38, No significant change was found Referred By: Meg Scales Electronically Signed By:RAMESH BERNAL MD
--- NOTE | 2022-03-22 12:05 | ED_ITS ---
HPI - Psych General Chief Complaint: Psychiatric Symptoms <MAI Hirsch - Last Filed: 03/22/22 15:10> Stated Complaint: Crisis <MAI Hirsch - Last Filed: 03/22/22 15:10> Time Seen by Provider: 03/22/22 11:55 <MAI Hirsch Last Filed: 03/22/22 15:10> Source: family and old records reviewed <MAI Hirsch - Last Filed: 03/22/22 15:10> Limitations: no limitations <MAI Hirsch Last Filed: 03/22/22 15:10> History of Present Illness HPI Narrative: 27-year-old female with history of substance induced encephalopathy, polysubstance abuse disorder, history of prolonged QTC who presents to the ER with her significant other for concerns of bizarre behaviors. her significant other reports that she has been acting very abnormally, flapping her arms and not sleeping well. She is not speaking, only shaking her head yes or no. Patient was admitted here for the same from March 11 to March 17, her symptoms resolved after sobriety, thought to be due to toxic ingestion from polysubstance abuse. Her urinary toxicology at that time was positive for opiates, fentanyl, cocaine, marijuana. Her mental status had cleared by the time of discharge and she was referred for therapy. the significant other reports that when she was discharged on the she still was not her baseline. Upon interviewing patient is smiling giggling, only answering yes no questions. Within reports she did not sleep at all last night. He denies any further illicit drug use. She denies any ongoing drug use as well. She was previously sniffing, never injected IV drugs. She denies any suicidal thoughts <MAI Hirsch - Last Filed: 03/22/22 15:10> MD complaint: other ( Abnormal and bizarre behaviors) <MAI Hirsch - Last Filed: 03/22/22 15:10> Onset (ago): unknown <MAI Hirsch Last Filed: 03/22/22 15:10> Duration: constant <MAI Hirsch Last Filed: 03/22/22 15:10> History of same: Yes <MAI Hirsch Last Filed: 03/22/22 15:10> Relieving factors: none <MAI Hirsch Last Filed: 03/22/22 15:10> Exacerbating factors: drug use <MAI Hirsch Last Filed: 03/22/22 15:10> Associated symptoms: insomnia <MAI Hirsch Last Filed: 03/22/22 15:10> Treatments prior to arrival: none <MAI Hirsch Last Filed: 03/22/22 15:10> Related Data Home Medications: Home Medications Medication Instructions Recorded Confirmed No Known Home Meds 03/09/22 03/14/22 Previous Rx's Medication Instructions Recorded nicotine (polacrilex) 2 mg gum 2 mg buccal Q2H PRN Nicotine 03/17/22 Cravings 30 days #100 ea <MAI Hirsch Filed: 03/22/22 15:10> Allergies/Adverse Reactions: Allergies Allergy/AdvReac Type Severity Reaction Status Date / Time No Known Allergies Allergy Verified 03/22/22 11:46 <MAI Hirsch Last Filed: 03/22/22 15:10> Review of Systems Review of Systems: Constitutional: No Fever, No Chills ENT/Mouth: No sore throat, No Rhinorrhea, No Swallowing Difficulty Eyes: No Eye Pain, No Swelling, No Redness Cardiovascular: No Chest Pain, No SOB, No Orthopnea, No Edema Respiratory: No Cough, No Sputum, No Wheezing, No dyspnea Gastrointestinal: No Nausea, No Vomiting, No Diarrhea, No abdominal Pain, No Hematochezia, No Melena Genitourinary: No Dysuria, No Urinary Frequency, No Hematuria Musculoskeletal: No joint pain, No Myalgias Skin: No Skin Lesions, No rash Neuro: No Weakness, No Numbness, No Dizziness, No Headache Psych: No Anxiety/Panic, No Depression Heme/Lymph: No Bruising, No Lymphadenopathy Endocrine: No Polyuria, No Polydipsia <MAI Hirsch Last Filed: 03/22/22 15:10> [facility] Past Medical History Medical History: Medical History Chronic cough Smoker <MAI Hirsch Last Filed: 03/22/22 15:10> Family History Family History: Family History Father No problems noted. Mother Family history of thyroid problem <MAI Hirsch - Last Filed: 03/22/22 15:10> Social History Social History: Social History Household Members: Unknown / Unable to assess Household Members Other:: child of Sig other Housing: Unknown / Unable to assess Do you presently have visiting nurse or other home services: No Unable to assess alcohol history related to: Unable to respond Patient Tobacco Use Status: Current everyday Tobacco user Tobacco use type: Cigarette e-Cigarette/Vaping Use: Never Used Second Hand Smoke Exposure: No Substance Use Type: Crack/Cocaine, Heroin and Opiates Advance Directives: No Advance Directives Information Provided: Yes service: No Current occupational status: unemployed Sexual orientation: Straight/Heterosexual <MAI Hirsch - Last Filed: 03/22/22 15:10> Physical Exam Vital Signs: Vital Signs: Last Vital Signs Temp 98.4 F 03/22/22 15:48 Pulse 62 03/22/22 15:48 Resp 16 03/23/22 06:09 BP 147/88 H 03/22/22 15:48 Pulse Ox 98 03/22/22 15:48 O2 Del Method 03/22/22 15:48 BMI result Body Mass Index 23.3 <MAI Hirsch - Last Filed: 03/22/22 15:10> Vital Signs: Last Vital Signs Temp 98.4 F 03/22/22 15:48 Pulse 62 03/22/22 15:48 Resp 16 03/23/22 06:09 BP 147/88 H 03/22/22 15:48 Pulse Ox 98 03/22/22 15:48 O2 Del Method 03/22/22 15:48 BMI result Body Mass Index 23.3 <Vick Lucio MD - Last Filed: 03/23/22 06:59> Appearance: Awake and alert, No acute distress, intermittently restless Eyes: Pupils equal, round and reactive to light. ENT: Pharynx normal. Neck: Normal inspection. Neck supple. CVS: Normal heart rate and rhythm. Pulses normal. Respiratory: No respiratory distress. Breath sounds normal. Abdomen: Soft and nontender. +BS x4 Skin: Skin warm and dry. Normal skin color. Normal skin turgor. No rashes. Extremities: No lower extremity edema. No track de la fuente on UE Neuro/psych: awake and alert, does not answer orientation questions. follows simple commands and moves all extremities appropriately. CN II-XII grossly i ntact. makes eye contact. intermittently restless with apparent involuntry movements of her UE. DTRs normal. no clonus. <MAI Hirsch - Last Filed: 03/22/22 15:10> Course Course Course Narrative: 27-year-old female with history of polysubstance abuse with recent admission here for substance related multifactorial encephalopathy. She is awak e and alert on arrival, not engaging in full conversation only answering good to how she is and shaking/nodding her head to Y/N questions. will check U tox, alcohol level, basic lab workup. Given her history of prolonged QTC ( resolved upon discharge) will get EKG for medical clearance as well. Once medically cleared will have her evaluated by the crisis team. <MAI Hirsch - Last Filed: 03/22/22 15:10> Reevaluation(s) Reevaluation #1: Labs are unremarkable. Awaiting urinary toxicology screen. Patient currently refusing an EKG pulling off all the stickers but would not verbalize anything to the tack at the bedside. Will hold off for now and tried again anot her EKG later. Physician observation started at 13:45. Patient placed in physician observation because patient is awaiting [facility] evaluation for the possible need of inpatient psych admission. At the time observation was started patient's vital signs were stable. Patient is alert and oriented. Neuro exam limited due to patient's participation but nonfocal, moving all extremities and can verbalize. CV: RRR and lungs are clear. Will continue to monitor. <MAI Hirsch - Last Filed: 03/22/22 15:10> Reevaluation #2: Physician observation continued: patient on a drug binge after the of her mother two weeks ago. Care team to see patient. <Vick Lucio MD - Last Filed: 03/23/22 06:59> Time: 06:59 <Vick Lucio MD - Last Filed: 08/01/22 06:59> MDM - Psych Lab Data Result diagrams: : 03/22/22 12:43 03/22/22 12:43 <MAI Hirsch - Last Filed: 03/22/22 15:10> Labs: Lab Results 03/22/22 03/22/22 03/22/22 Range/Units 12:43 12:43 12:43 WBC 8.8 (4.8-10.8) X10*3/uL RBC 4.39 (4.20-5.50) X10*6/uL Hgb 12.6 (12.0-16.0) g/dl Hct 37.2 (37.0-47.0) % MCV 84.7 (80.0-98.0) fL MCH 28.7 (27.0-33.0) pg MCHC 33.9 (31.0-35.0) g/dl RDW 12.9 (11.0-16.0) % Plt Count 251 (160-400) X10*3/uL MPV 10.1 (9.4-12.3) fL Immature Gran % (Auto) 0.2 (0.0-0.4) % Neut % (Auto) 36.5 L (45-73) % Lymph % (Auto) 52.3 H (20-40) % [place] % (Auto) 9.6 (2-11) % Eos % (Auto) 0.8 (0-4) % Baso % (Auto) 0.6 (0-2) % Lymph # (Auto) 4.6 (1.2-4.9) X10*3/uL [place] # (Auto) 0.8 (0.1-1.2) X10*3/uL Eos # (Auto) 0.1 (0.0-0.4) X10*3/uL Baso # (Auto) 0.1 (0.0-0.2) X10*3/uL Abs Immat Gran (auto) 0.02 (0.00-0.03) X10*3/uL Absolute Neuts (auto) 3.2 (2.0-8.3) x10*3/uL Absolute Nucleated RBC 0.000 (0.0-0.012) X10*3/uL Nucleated RBC % (auto) 0.0 (0.0-0.2) /100WBC Sodium 140 (135-145) mmol/L Potassium 3.6 D (3.3-5.1) mmol/L Chloride 105 (96-108) mmol/L Carbon Dioxide 22 (22-29) mmol/L Anion Gap 17 (12-20) BUN 13 (9-16) mg/dL Creatinine 0.77 (0.5-1.4) mg/dL Estim Creat Clear Calc 98.7 Estimated GFR > 60 Random Glucose 87 (60-115) mg/dL Calcium 9.3 (8.4-10.2) mg/dL Magnesium 1.9 (1.6-2.6) mg/dL Total Bilirubin 1.0 (0.0-1.0) mg/dL Direct Bilirubin 0.4 (0.0-0.5) mg/dL AST 18 (5-31) U/L ALT 15 (0-31) U/L Alkaline Phosphatase 61 (39-117) U/L Total Protein 7.5 (6.5-8.0) g/dL Albumin 4.8 (3.5-5.0) g/dL Urine Color Urine Appearance Urine pH (5.0-8.0) Ur Specific [place] (1.005-1.025) Urine Protein (NEG-TRACE) MG/DL Urine Glucose (UA) (NEG) MG/DL Urine Ketones (NEG) MG/DL Urine Blood (NEG) Urine Nitrite (NEG) Ur Leukocyte Esterase (NEG) Urine RBC (0) /HPF Urine WBC (0-4) /HPF Ur Squamous Epith Cells /LPF Urine Bacteria /LPF Urine Test (NEGATIVE) Urine Opiates Screen (Not Detect) Urine Fentanyl Screen (Not Detect) Ur Barbiturates Screen (Not Detect) Ur Phencyclidine Scrn (Not Detect) Ur Amphetamines Screen (Not Detect) U Benzodiazepines Scrn (Not Detect) Urine Cocaine Screen (Not Detect) U Marijuana (THC) Screen (Not Detect) Ethyl Alcohol < 10 mg/dL COVID-19 (DANILO) Negative (Negative) COVID-19 Clin Com See Note 03/22/22 03/22/22 03/22/22 Range/Units 17:49 17:49 17:49 WBC (4.8-10.8) X10*3/uL RBC (4.20-5.50) X10*6/uL Hgb (12.0-16.0) g/dl Hct (37.0-47.0) % MCV (80.0-98.0) fL MCH (27.0-33.0) pg MCHC (31.0-35.0) g/dl RDW (11.0-16.0) % Plt Count (160-400) X10*3/uL MPV (9.4-12.3) fL Immature Gran % (Auto) (0.0-0.4) % Neut % (Auto) (45-73) % Lymph % (Auto) (20-40) % [place] % (Auto) (2-11) % Eos % (Auto) (0-4) % Baso % (Auto) (0-2) % Lymph # (Auto) (1.2-4.9) X10*3/uL [place] # (Auto) (0.1-1.2) X10*3/uL Eos # (Auto) (0.0-0.4) X10*3/uL Baso # (Auto) (0.0-0.2) X10*3/uL Abs Immat Gran (auto) (0.00-0.03) X10*3/uL Absolute Neuts (auto) (2.0-8.3) x10*3/uL Absolute Nucleated RBC (0.0-0.012) X10*3/uL Nucleated RBC % (auto) (0.0-0.2) /100WBC Sodium (135-145) mmol/L Potassium (3.3-5.1) mmol/L Chloride (96-108) mmol/L Carbon Dioxide (22-29) mmol/L Anion Gap (12-20) BUN (9-16) mg/dL Creatinine (0.5-1.4) mg/dL Estim Creat Clear Calc Estimated GFR Random Glucose (60-115) mg/dL Calcium (8.4-10.2) mg/dL Magnesium (1.6-2.6) mg/dL Total Bilirubin (0.0-1.0) mg/dL Direct Bilirubin (0.0-0.5) mg/dL AST (5-31) U/L ALT (0-31) U/L Alkaline Phosphatase (39-117) U/L Total Protein (6.5-8.0) g/dL Albumin (3.5-5.0) g/dL Urine Color YELLOW Urine Appearance HAZY Urine pH 6.0 (5.0-8.0) Ur Specific [place] >= 1.030 H (1.005-1.025) Urine Protein 1+ H (NEG-TRACE) MG/DL Urine Glucose (UA) NEG (NEG) MG/DL Urine Ketones NEG (NEG) MG/DL Urine Blood NEG (NEG) Urine Nitrite POS H (NEG) Ur Leukocyte Esterase NEG (NEG) Urine RBC 0-2 (0) /HPF Urine WBC 5-9 H (0-4) /HPF Ur Squamous Epith Cells 4+ /LPF Urine Bacteria 2+ /LPF Urine Test NEGATIVE (NEGATIVE) Urine Opiates Screen POSITIVE H (Not Detect) Urine Fentanyl Screen POSITIVE H (Not Detect) Ur Barbiturates Screen Not Detected (Not Detect) Ur Phencyclidine Scrn Not Detected (Not Detect) Ur Amphetamines Screen Not Detected (Not Detect) U Benzodiazepines Scrn POSITIVE H (Not Detect) Urine Cocaine Screen POSITIVE H (Not Detect) U Marijuana (THC) Screen POSITIVE H (Not Detect) Ethyl Alcohol mg/dL COVID-19 (DANILO) (Negative) COVID-19 Clin Com <MAI Hirsch - Last Filed: 03/22/22 15:10> Lab Results 03/22/22 03/22/22 03/22/22 Range/Units 12:43 12:43 12:43 WBC 8.8 (4.8-10.8) X10*3/uL RBC 4.39 (4.20-5.50) X10*6/uL Hgb 12.6 (12.0-16.0) g/dl Hct 37.2 (37.0-47.0) % MCV 84.7 (80.0-98.0) fL MCH 28.7 (27.0-33.0) pg MCHC 33.9 (31.0-35.0) g/dl RDW 12.9 (11.0-16.0) % Plt Count 251 (160-400) X10*3/uL MPV 10.1 (9.4-12.3) fL Immature Gran % (Auto) 0.2 (0.0-0.4) % Neut % (Auto) 36.5 L (45-73) % Lymph % (Auto) 52.3 H (20-40) % [place] % (Auto) 9.6 (2-11) % Eos % (Auto) 0.8 (0-4) % Baso % (Auto) 0.6 (0-2) % Lymph # (Auto) 4.6 (1.2-4.9) X10*3/uL [place] # (Auto) 0.8 (0.1-1.2) X10*3/uL Eos # (Auto) 0.1 (0.0-0.4) X10*3/uL Baso # (Auto) 0.1 (0.0-0.2) X10*3/uL Abs Immat Gran (auto) 0.02 (0.00-0.03) X10*3/uL Absolute Neuts (auto) 3.2 (2.0-8.3) x10*3/uL Absolute Nucleated RBC 0.000 (0.0-0.012) X10*3/uL Nucleated RBC % (auto) 0.0 (0.0-0.2) /100WBC Sodium 140 (135-145) mmol/L Potassium 3.6 D (3.3-5.1) mmol/L Chloride 105 (96-108) mmol/L Carbon Dioxide 22 (22-29) mmol/L Anion Gap 17 (12-20) BUN 13 (9-16) mg/dL Creatinine 0.77 (0.5-1.4) mg/dL Estim Creat Clear Calc 98.7 Estimated GFR > 60 Random Glucose 87 (60-115) mg/dL Calcium 9.3 (8.4-10.2) mg/dL Magnesium 1.9 (1.6-2.6) mg/dL Total Bilirubin 1.0 (0.0-1.0) mg/dL Direct Bilirubin 0.4 (0.0-0.5) mg/dL AST 18 (5-31) U/L ALT 15 (0-31) U/L Alkaline Phosphatase 61 (39-117) U/L Total Protein 7.5 (6.5-8.0) g/dL Albumin 4.8 (3.5-5.0) g/dL Urine Color Urine Appearance Urine pH (5.0-8.0) Ur Specific [place] (1.005-1.025) Urine Protein (NEG-TRACE) MG/DL Urine Glucose (UA) (NEG) MG/DL Urine Ketones (NEG) MG/DL Urine Blood (NEG) Urine Nitrite (NEG) Ur Leukocyte Esterase (NEG) Urine RBC (0) /HPF Urine WBC (0-4) /HPF Ur Squamous Epith Cells /LPF Urine Bacteria /LPF Urine Test (NEGATIVE) Urine Opiates Screen (Not Detect) Urine Fentanyl Screen (Not Detect) Ur Barbiturates Screen (Not Detect) Ur Phencyclidine Scrn (Not Detect) Ur Amphetamines Screen (Not Detect) U Benzodiazepines Scrn (Not Detect) Urine Cocaine Screen (Not Detect) U Marijuana (THC) Screen (Not Detect) Ethyl Alcohol < 10 mg/dL COVID-19 (DANILO) Negative (Negative) COVID-19 Clin Com See Note 03/22/22 03/22/22 03/22/22 Range/Units 17:49 17:49 17:49 WBC (4.8-10.8) X10*3/uL RBC (4.20-5.50) X10*6/uL Hgb (12.0-16.0) g/dl Hct (37.0-47.0) % MCV (80.0-98.0) fL MCH (27.0-33.0) pg MCHC (31.0-35.0) g/dl RDW (11.0-16.0) % Plt Count (160-400) X10*3/uL MPV (9.4-12.3) fL Immature Gran % (Auto) (0.0-0.4) % Neut % (Auto) (45-73) % Lymph % (Auto) (20-40) % [place] % (Auto) (2-11) % Eos % (Auto) (0-4) % Baso % (Auto) (0-2) % Lymph # (Auto) (1.2-4.9) X10*3/uL [place] # (Auto) (0.1-1.2) X10*3/uL Eos # (Auto) (0.0-0.4) X10*3/uL Baso # (Auto) (0.0-0.2) X10*3/uL Abs Immat Gran (auto) (0.00-0.03) X10*3/uL Absolute Neuts (auto) (2.0-8.3) x10*3/uL Absolute Nucleated RBC (0.0-0.012) X10*3/uL Nucleated RBC % (auto) (0.0-0.2) /100WBC Sodium (135-145) mmol/L Potassium (3.3-5.1) mmol/L Chloride (96-108) mmol/L Carbon Dioxide (22-29) mmol/L Anion Gap (12-20) BUN (9-16) mg/dL Creatinine (0.5-1.4) mg/dL Estim Creat Clear Calc Estimated GFR Random Glucose (60-115) mg/dL Calcium (8.4-10.2) mg/dL Magnesium (1.6-2.6) mg/dL Total Bilirubin (0.0-1.0) mg/dL Direct Bilirubin (0.0-0.5) mg/dL AST (5-31) U/L ALT (0-31) U/L Alkaline Phosphatase (39-117) U/L Total Protein (6.5-8.0) g/dL Albumin (3.5-5.0) g/dL Urine Color YELLOW Urine Appearance HAZY Urine pH 6.0 (5.0-8.0) Ur Specific [place] >= 1.030 H (1.005-1.025) Urine Protein 1+ H (NEG-TRACE) MG/DL Urine Glucose (UA) NEG (NEG) MG/DL Urine Ketones NEG (NEG) MG/DL Urine Blood NEG (NEG) Urine Nitrite POS H (NEG) Ur Leukocyte Esterase NEG (NEG) Urine RBC 0-2 (0) /HPF Urine WBC 5-9 H (0-4) /HPF Ur Squamous Epith Cells 4+ /LPF Urine Bacteria 2+ /LPF Urine Test NEGATIVE (NEGATIVE) Urine Opiates Screen POSITIVE H (Not Detect) Urine Fentanyl Screen POSITIVE H (Not Detect) Ur Barbiturates Screen Not Detected (Not Detect) Ur Phencyclidine Scrn Not Detected (Not Detect) Ur Amphetamines Screen Not Detected (Not Detect) U Benzodiazepines Scrn POSITIVE H (Not Detect) Urine Cocaine Screen POSITIVE H (Not Detect) U Marijuana (THC) Screen POSITIVE H (Not Detect) Ethyl Alcohol mg/dL COVID-19 (DANILO) (Negative) COVID-19 Clin Com <Vick Lucio MD - Last Filed: 03/23/22 06:59> Discharge Plan Discharge Clinical Impression: Bizarre behavior <MAI Hirsch - Last Filed: 03/22/22 15:10> Patient Disposition: Still a Patient <MAI Hirsch - Last Filed: 03/22/22 15:10> Prescriptions: No Action No Known Home Meds nicotine (polacrilex) 2 mg Gum 2 mg buccal Q2H PRN (Reason: Nicotine Cravings) 30 Days Qty: 100 0RF <MAI Hirsch - Last Filed: 03/22/22 15:10>
[2022-03-22 12:48] LABS: MANUAL DIFF FLAG NO
[2022-03-22 12:52] LABS: Basophils Absolute Auto 0.1 X10*3/uL (0.0-0.2); Basophils Percent Auto 0.6 % (0-2); Eosinophils Absolute Auto 0.1 X10*3/uL (0.0-0.4); Eosinophils Percent Auto 0.8 % (0-4); Hematocrit 37.2 % (37.0-47.0); Hemoglobin 12.6 g/dl (12.0-16.0); Imm Gran Abs Auto 0.02 X10*3/uL (0.00-0.03); Imm Gran Pct Auto 0.2 % (0.0-0.4); Lymphocytes Absolute Auto 4.6 X10*3/uL (1.2-4.9); Lymphocytes Percent Auto 52.3 % (20-40); Mean Corpuscular HGB Conc 33.9 g/dl (31.0-35.0); Mean Corpuscular Hemoglobin 28.7 pg (27.0-33.0); Mean Corpuscular Volume 84.7 fL (80.0-98.0); Mean Platelet Volume 10.1 fL (9.4-12.3); Monocytes Absolute Auto 0.8 X10*3/uL (0.1-1.2); Monocytes Percent Auto 9.6 % (2-11); Neutrophils Absolute Auto 3.2 x10*3/uL (2.0-8.3); Neutrophils Percent Auto 36.5 % (45-73); Platelet Count 251 X10*3/uL (160-400); Red Blood Count 4.39 X10*6/uL (4.20-5.50); Red Cell Distribution Width 12.9 % (11.0-16.0); White Blood Count 8.8 X10*3/uL (4.8-10.8)
[2022-03-22 13:05] LABS: COVID-19 Test Negative (Negative)
[2022-03-22 13:21] LABS: Alanine Aminotransferase 15 U/L (0-31); Albumin Level 4.8 g/dL (3.5-5.0); Alkaline Phosphatase 61 U/L (39-117); Anion Gap 17 (12-20); Aspartate Amino Transferase 18 U/L (5-31); Bilirubin Direct 0.4 mg/dL (0.0-0.5); Blood Urea Nitrogen 13 mg/dL (9-16); Calcium 9.3 mg/dL (8.4-10.2); Carbon Dioxide 22 mmol/L (22-29); Chloride 105 mmol/L (96-108); Creatinine Clr Calc Pharmacy 98.7; Estimated Glomerular Filt Rate > 60; Ethanol < 10 mg/dL; Glucose Random 87 mg/dL (60-115); Magnesium 1.9 mg/dL (1.6-2.6); Potassium 3.6 mmol/L (3.3-5.1); Sodium 140 mmol/L (135-145); Total Protein 7.5 g/dL (6.5-8.0)
[2022-03-22 15:48] VITALS: BP 147/88; PULSE 62; RESP 16; TEMP 36.9; O2SAT 98
--- NOTE | 2022-03-22 15:50 | PC.NURSE ---
PATIENT GOT CONSTRUCTION LINEMAN INTO HOSPITAL ATTIRE BY THIS PCT ,MANAGER AREA SAID PATIENT DOES NOT NEED A 1:1 AT THIS TIME .
[2022-03-22 17:58] LABS: Appearance Urine HAZY; Color Urine YELLOW; Glucose Urine UA NEG (NEG); Leukocyte Esterase Urine NEG (NEG); Nitrite Urine POS (NEG); Specific Gravity - Urine >= 1.030 (1.005-1.025); UACC Culture Trigger YES; Urine Blood NEG (NEG); Urine Ketones NEG (NEG); Urine Protein 1+ MG/DL (NEG-TRACE)
[2022-03-22 18:00] LABS: UPreg QC Valid YES; Urine Pregnancy NEGATIVE (NEGATIVE)
[2022-03-22 18:11] LABS: Amphetamine Screen Urine Not Detected (Not Detect); Barbiturates, Urine Not Detected (Not Detect); Benzodiazepines Screen Urine POSITIVE (Not Detect); Cannabinoid Screen Urine POSITIVE (Not Detect); Cocaine Screen Urine POSITIVE (Not Detect); Fentanyl, urine POSITIVE (Not Detect); Opiate Screen Urine POSITIVE (Not Detect); Phencyclidine Screen Urine Not Detected (Not Detect)
[2022-03-22 18:26] LABS: Bacteria Urine 2+ /LPF; RBC Urine 0-2 /HPF (0); Squamous Epithelial Cell Urine 4+ /LPF
[2022-03-22] MEDS: LORazepam 1 MG TABLET 2 MG PO (18:38)
--- NOTE | 2022-03-22 18:47 | PC.NURSE ---
Pt has been pacing, in and out of bathroom. Skin slighlty damp, anxious, slight tremors. has been easilty redirected back to bed but becoming more difficult. Stating i just want to go home . sitter assigned. Pt denies SI.
--- NOTE | 2022-03-22 19:10 | PC.NURSE ---
pt restless, not making sense and trying to leave ER. pt medicated with IM medications per [employer]ISHER. pt tolerated administration despite initally being resistive and expressing the desire to leave. security at bedside for administration
[2022-03-22] MEDS: diphenhydrAMINE HCL 50 MG/ML VIAL 25 MG IM (19:11)
[2022-03-22] MEDS: Haloperidol Lactate 5 MG/ML VIAL IM (19:11)
[2022-03-22] MEDS: diazePAM 10 MG/2 ML CARTRIDGE 5 MG IM (19:12)
--- NOTE | 2022-03-22 19:13 | MHC.CARE ---
CARE team attempted to meet with the pt at the request of the ED provider and nurse. Pt was brought to the ED by her boyfriend, who had concerns about her ongoing altered mental status and erratic behavior. Pt has been asking to leave and exit seeking while in the main ED. Pt's toxicology screen was positive for opiates, fentanyl, benzodiazepines, cocaine, and marijuana. Pt was recently admitted to for psychosis which was determined to be substance induced and she was discharged from the unit without the use of medications and with outpatient referrals and appointments. CARE team met with the pt to assess her current level of risk for harm to herself and others. Pt was dressed in hospital attire and standing in the hallway next to the hospital stretcher. She had her arms crossed tightly around her torso and appeared to be anxious and distressed. She was not able to engage in conversation and was repeatedly asking to leave and saying that her home is safe. She does not appear to have any insight into why she is in the hospital and stated that her boyfriend dropped her off because he had to go to work. Pt was looking around suspiciously and glancing at the door to the BH pod. Earlier in the evening she was observed trying to enter the BH pod each time the door way opened. She did not want to speak any further and insisted on leaving the hospital. Shortly after this encounter the pt forced her way into the BH pod and ran to the other entrance trying to escape. She has been formally moved into [facility] and received IM medications for agitation. Pt is not appropriate for further assessment at this time.
[2022-03-23 06:09] VITALS: RESP 16
--- NOTE | 2022-03-23 06:27 | PC.NURSE ---
Patient was transferred to ED POD from main ED, patient was extremely agitated/demanding discharge/attempted to barge exit door/unable to redirect, provider ordered Benadryl 25 mg IM, Valium 5 mg IM, and Haldol 5 mg IM/was administered at 1910 with support from security, patient got even more agitated/continuously demanding discharge/ patient wants to her boyfriend/portable phone made available but patient threw the phone at staff member out of rage, engaged in risky behavior jumping on the bed, for patient's safety mechanical restraint required as ordered by the provider, initiated at 1934 and ends at 1949, lasted for 15 minutes. 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
--- NOTE | 2022-03-23 10:45 | PC.NURSE ---
PT HAS BEEN CALM AND COOPERATIVE THIS MORNING TOLERATED BREAKFAST AND AMB TO BR
[2022-03-23 13:44] LABS: Magnesium 2.2 mg/dL (1.6-2.6); Potassium 3.9 mmol/L (3.3-5.1)
== END 2022-03-23 14:42 | disposition home or self-care (01) ==
PROVIDERS: Physician Assistant; Social Worker; Emergency Provider Student in an Organized Health Care Education/Training Program
DX: F11.121 Opioid abuse with intoxication delirium (principal); F14.10 Cocaine abuse, uncomplicated; F17.210 Nicotine dependence, cigarettes, uncomplicated; Z20.822 Contact with and (suspected) exposure to COVID-19; Z71.6 Tobacco abuse counseling; Z79.899 Other long term (current) drug therapy; Z71.51 Drug abuse counseling and surveillance of drug abuser
CPT/HCPCS: 36415; 80048; 80076; 80307; 81001; 81025; 82077; 83735; 84132; 85025; 87086; 87088; 87186; 87635; 93005; 96372; 99284; J1200; J3360